=== PATIENT | female | born 1940 | race Caucasian/White ===

== ENCOUNTER 2016-11-27 16:58 | Inpatient (IN) | payer MEDICARE, OTHER ==
[~2016-11-27] VITALS: Ht 167.6 cm; Wt 73.3 kg
[~2016-11-27 16:58] MED LIST: ALBUTHFA INH; ASC500 PO; ASPI-653 PO; CHOL400T30 PO; CITA20TA PO; DABI150C2 PO; DILT120C17 PO; FURO-3 PO; GABA300C6 PO; GLU500 PO; LOP50 PO; MET10 PO; METO25T PO; OMEP20CA11 PO; PYRI100T6 PO; SIMV40TA5 PO; SPIR25TA17 PO; TIOT18CA INH; VITE PO
[2016-11-27 17:02] VITALS: BP 114/71; PULSE 80; RESP 18; O2SAT 97
[2016-11-27 17:39] LABS: EOSINOPHILS % (AUTO) 0.9 % (0-5); MONOCYTES % (AUTO) 10.1 % (4-12); Mean Corpuscular Hemoglobin 33.2 pg (27.0-35.0); Mean Corpuscular Volume 96.3 fL (81-100); NEUTROPHILS % (AUTO) 46.7 % (40-74); Platelet Count 199 bil/L (150-400)
[2016-11-27 18:18] LABS: TROPONIN T < 0.010 ug/L (0.0-0.011)
--- NOTE | 2016-11-27 18:44 | DRSVH ---
PROCEDURE: X-RAY CHEST ONE VIEW, PORTABLE ([id number]) INDICATIONS: 76 year-old female with shortness of breath and chest pressure for several days. TECHNIQUE: One view of the chest was acquired. COMPARISON: [facility], , CHEST 1VW, 09/16/2012, 0:12. FINDINGS: Surgical changes and devices: None. Lungs and pleura: No pleural effusions or pneumothorax. Lungs are clear. Mediastinum: Mediastinal contours appear normal. Mild cardiomegaly is unchanged. There is aortic at herosclerosis. Bones and chest wall: No suspicious bony lesions. Overlying soft tissues appear unremarkable. IMPRESSION: Mild cardiomegaly, without acute cardiopulmonary disease. Dictated by: Christiano Carbajal M.D. on 11/27/2016 at 18:42 Approved by: Christiano Carbajal M.D. on 11/27/2016 at 18:43
[2016-11-27] MEDS ORDERED: Furosemide 10 mg/mL 10 mL Inj IVPUSH ONE (18:55)
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
[2016-11-27 19:10] LABS: D-Dimer < 0.50 mg/L FEU (<0.50); INR 1.25 ratio
[2016-11-27 19:39] VITALS: BP 127/60; PULSE 71; RESP 11; O2SAT 95
[2016-11-27] MEDS ORDERED: GABA600T2 PO (20:11)
[2016-11-27] MEDS ORDERED: CHOL10008 PO (20:19)
[2016-11-27] MEDS ORDERED: METH5TAB3 PO ×2 (20:19→23:56)
[2016-11-27] MEDS ORDERED: DILT180C53 PO (20:19)
[2016-11-27] MEDS ORDERED: WARF5TAB7 PO (20:19)
[2016-11-27 20:49] LABS: APPEARANCE,URINE CLEAR (CLEAR,HAZY); COLOR,URINE YELLOW (YELLOW); OCCULT BLOOD,URINE NEGATIVE (NEGATIVE); UROBILINOGEN,URINE NORMAL (NORMAL)
[2016-11-27] MEDS ORDERED: Ondansetron 2 mg/mL 2 mL Inj IVPUSH PRN (21:25)
[2016-11-27] MEDS ORDERED: Senna-Docusate 8.6-50 mg Tablet PO PRN (21:25)
[2016-11-27] MEDS ORDERED: Polyethylene Glycol (PEG) 17 Gm Powder PO PRN (21:25)
[2016-11-27] MEDS ORDERED: Alum-Mag Hydrox-Simeth 30 mL Suspension PO PRN (21:25)
[2016-11-27 22:26] VITALS: BP 122/73; PULSE 73; RESP 17; O2SAT 95
[2016-11-27] MEDS ORDERED: ASPI-973 PO (23:54)
[2016-11-27] MEDS ORDERED: METF500T4 PO (23:54)
[2016-11-27] MEDS ORDERED: OMEP20CA11 PO (23:54)
[2016-11-27] MEDS ORDERED: LIP40 PO (23:56)
[2016-11-27] MEDS ORDERED: MTH10T PO (23:57)
[2016-11-27] MEDS ORDERED: ASCO-294 PO (23:58)
[2016-11-28] VITALS (8 sets, daily range): BP systolic 106–133; BP diastolic 61–88; PULSE 83–125; RESP 14–22; O2SAT 94–97
[2016-11-28] MEDS ORDERED: VITA-251 PO
[2016-11-28] MEDS ORDERED: ALBU18HF INH (00:05)
[2016-11-28] MEDS ORDERED: FURO40TA4 PO (00:05)
[2016-11-28] MEDS ORDERED: DILT180C53 PO (00:05)
[2016-11-28] MEDS ORDERED: TIOT18CA3 IH (00:05)
[2016-11-28] MEDS ORDERED: PYR50 PO (00:05)
[2016-11-28] MEDS ORDERED: spiriva (00:05)
[2016-11-28] MEDS ORDERED: CITA20TA11 PO (00:06)
[2016-11-28] MEDS ORDERED: Albuterol 2.5 mg/3 mL Inhalation Solution NEB PRN (00:39)
[2016-11-28] MEDS: Sodium Chloride LOK Flush 10 mL Syringe IVFLUSH SCH ×3 (01:15→19:59)
--- NOTE | 2016-11-28 02:55 | NUR ---
[place] [facility] [place] Patient arrived to room 3014 at 2230. alert and orientedx4 able to make needs known. denies pain/discomfort. Vitals stable. no shortness of breath. medication rec completed with patient own home med list. patient request night medications. paged. admission assessment completed through patient interview. tele in place. IV SL. patient up independently in room. steady gait observed.
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
[2016-11-28 06:32] LABS: INR 1.26 ratio
[2016-11-28 07:49] LABS: Magnesium 2.4 mg/dL (1.6-2.6)
[2016-11-28] MEDS ORDERED: Diltiazem CD 120 mg ER24 Capsule PO SCH (08:30)
[2016-11-28] MEDS: Pantoprazole 20 mg ER24 Tablet PO SCH ×2 (10:13→19:59)
[2016-11-28] MEDS: Tiotropium 18mcg/Cap 5 Capsule Inhaler Kit INHALATION SCH (10:17)
--- NOTE | 2016-11-28 11:24 | NUR ---
Case Management: MARCIE delivered and explained to pt. and spouse. Original placed in chart. Copy left at bedside. Sugey Sarabia RN
--- NOTE | 2016-11-28 11:55 | DRSVH ---
[facility] [address] [place] [address] Echocardiogram Report Name: STAN PENA Date : 11/28/2016 Height: 66 in Hospital Exam Location: [facility] Weight: 158 lb Gender: Female BSA: 1.8 m2 : 1940 Age: 76 yrs BP: 117/66 mmHg Reason For Study: Dyspnea Ordering Physician: HOSPITALIST [facility] Performed By: Abelino Nichols Referring Physician: ANITRA WOODS Interpretation Summary The left ventricle is mildly dilated. The ejection fraction is estimated to be 30-35%. There is moderate global hypokinesis of the left ventricle. Apical hypokinesis. Anteroseptal hypokinesis. There is moderate mitral regurgitation. There is moderate tricuspid regurgitation. The right ventricular systolic pressure is estimated at 34 mmHg assuming a right atrial pressure of 3 mm Hg. Compared to prior echo report on 11/11/14, changes are noted. Procedure: A two-dimensional transthoracic echocardiogram with color flow and Doppler was performed. The study quality was technically good. Comparison is made with the echocardiogram of 11/11/14. The patient was in atrial fibrillation with heart rates between 93-114 bpm during the exam. Left Ventricle: The left ventricle is mildly dilated. Left ventricular wall thickness is at the upper limits of normal. The ejection fraction is estimated to be 30-35%. There is moderate global hypokinesis of the left ventricle. Apical hypokinesis. Anteroseptal hypokinesis. Diastolic function could not be accurately assessed due to atrial fibrillation. Right Ventricle: The right ventricle is normal size. Right ventricular systolic function is mild to moderately reduced. Atria: The left atrium is severely dilated. The right atrium is mildly dilated. The interatrial septum is intact with no evidence for an atrial septal defect. Mitral Valve: The mitral valve leaflets appear mildly thickened, but open well. There is moderate mitral regurgitation. Aortic Valve: The aortic valve is trileaflet. The aortic valve opens well. There is trace aortic regurgitation. Tricuspid Valve: The tricuspid valve is normal. There is moderate tricuspid regurgitation. The right ventricular systolic pressure is estimated at 34 mmHg assuming a right atrial pressure of 3 mm Hg. Pulmonic Valve: The pulmonic valve leaflets are thin and pliable; valve motion is normal. There is a trace or physiologic amount of pulmonic regurgitation. Great Vessels: The aortic root is normal size. The ascending aorta is mildly enlarged. The pulmonary artery is normal size. The IVC is of normal diameter and collapses greater than 50% with a sniff. This suggests a low right atrial pressure of 3 mm Hg. Pericardium/ Pleura There is no pericardial effusion. There is no pleural effusion. MMode/2D Measurements & Calculations LVIDd: 5.4 cm RA long axis: 5.0 cm LVOT diam LVIDs: 4.4 cm LA A2 area: 26.1 cm FS: 19.2 % LA A4 area: 24.7 cm RA area: 18.5 cm AoV Opening EPSS: 1.5 cm LA length (vol): 5.7 cm RA vol: 58.4 ml IVSd: 0.98 cm LA vol: 95.7 ml RA : 32.3 ml/m2 Ao root diam LVPWd: 0.97 cm LA vol index: 52.9 ml/m asc Aorta Diam IVC diam: 2.1 cm EDV(MOD-sp2) LV garsia. diameter/BSA LV sys. diameter/BSA (cm/m^2): 3.0 (cm/m^2): 2.4 ESV(MOD-sp2) EF(MOD-sp2) Doppler Measurements & Calculations Ao V2 max: 82.1 cm/secMV E max jerod Med Peak E' Jerod TR max jerod Ao max P.7 mmHg : 97.0 cm/sec : 278.4 cm/sec Ao mean P.8 mmHg E/E' med: 19.2 TR max PG LVOT Max Jerod MR ERO: 0.34 cm2 Lat Peak E' Jerod : 31.0 mmHg : 60.6 cm/sec PA V2 max E/E' lat: 14.2 : 66.8 cm/sec DUANE(I,D): 2.0 cm E/e' average: 16.7 PA mean PG sev ratio: 0.72 : 1.0 mmHg Ao V2 mean LV V1 max PG MR flow rate PA V2 mean : 64.9 cm/sec : 48.8 cm/sec Ao V2 VTI: 15.9 cm LV V1 VTI : 173.2 cm3/sec : 11.4 cm MR PISA radius DUANE(V,D): 2.1 cm2 DUANE indexed to BSA (cm^2/m^2): 1.1 Electronically signed by: Mark Louis on Reading Physician:11/28/2016 11:54 AM
[2016-11-28] MEDS: Insulin LISPRO Low-Dose Scale SUBQ SCH ×3 (12:00→19:57)
[2016-11-28] MEDS ORDERED: MeTOProlol 1 mg/mL 5 mL Inj ONE (12:47)
--- NOTE | 2016-11-28 14:51 | PCM.PNMED ---
Subjective Date of Service November 28, 2016 Subjective says overall feeling better. Denies any CP or SOB at rest right now. Exam Vital Signs Vital Sign - Last Date Time Temp Pulse Resp B/P Pulse Ox O2 Delivery O2 Flow Rate FiO2 11/28/16 13:17 36.7 125 18 114/61 94 Room Air Intake and Output 11/27/16 11/27/16 11/28/16 Cumulative From/Thru 15:00 23:00 07:00 11/27/16 17:02 - 11/28/16 06:23 Intake Total 0 ml 0 ml Output Total 900 ml 1050 ml 1950 ml Balance -900 ml -1050 ml -1950 ml Intake Oral 0 ml 0 ml Output Urine Total 900 ml 1050 ml 1950 ml General: Alert, Cooperative, No Acute Distress Head: Normal Eyes: Scleral Anicteric Mouth: Mucous Membr Moist/[place] Neck: Supple Chest & Lungs: Chest Wall Normal, Clear to auscultation & percussion Cardiovascular: Regular Rate/Rhythm Pulses: NL carotid, radial, femoral, DP, PT Abdomen: Non-tender, Non-distended, Normoactive bowel tones, Soft Extremities: No cyanosis/clubbing/edma bilat Neurological: Grossly Neurologically Intact, Normal Speech IVs and Medications Medications Reviewed: Medications were reviewed in detail Lab and Diagnostics Result Diagram: 11/27/16 1725 11/28/16 0550 Cardiac Echo Impressions Echocardiogram 11/11/2014: Moderate to severe tricuspid regurgitation Moderate mitral regurgitation Left ventricle is borderline dilated. The left ventricle is borderline dilated. Left ventricular systolic function is normal without focal wall motion abnormalities. The ejection fraction is estimated to be 55-60%. Borderline right ventricular enlargement. The right ventricular systolic function is normal. The right ventricular systolic pressure is estimated at 52 mmHg assuming a right atrial pressure of 3 mm Hg. RVSP has improved. There is moderate to severe tricuspid regurgitation. There is moderate mitral regurgitation. There is no other significant valvular heart disease. The aortic root is normal size. Heart catheterization 09/24/2013: 1. Essentially no evidence of significant coronary artery disease angiographically. 2. Moderately elevated right-sided heart pressures with moderate to severely elevated left ventricular end-diastolic pressures. 3. Normal cardiac outputs, as well as cardiac index. Assessment & Plan 76-year-old lady here for increasing dyspnea on exertion, chest pressure and shortness of breath since 11/25/2016. # Acute systolic Heart failure, present on admission. Active. - History of pulmonary hypertension, prolonged QT, atrial fibrillation, COPD, moderate mitral regurg. - IV Lasix in the emergency department. - Continue home medications. - Troponins negative - Echo showing reduced EF to 30-35% with some wall motion abnormality - Followup pending stress test - Cardiology consult today # Subtherapeutic INR. Present admission. Active. - Warfarin dosing per pharmacy. # Chronic A. fib on chronic Coumadin, present on admission Active. - Continue warfarin per pharmacist. - Continue home Cartia XT 120 every 12 hours. # COPD, present on admission. Stable. - Continue home Ventolin and Spiriva as needed. # Rkm-eodjhaa-oldoicpyt diabetes, present admission. Active. - Holding home metformin. - Carb consistent diet. - Medium scale correctional and nutritional insulin. - HgA1C pending. # Chronic GERD, present on admission. Stable. - Continue home omeprazole. # History of thoracic compression fracture on chronic pain meds. - Continue home methadone. # Hypertension, not present on admission. Stable. - Continue home medications as appropriate. # History of traumatic injury with splenectomy. Dispo: 2-3 days Resuscitation Status: CPR: Attempt Resuscitation Killian Whyte November 28, 2016 14:51 SubQ heparin held for now. SCDs in place. Disposition: Patient has been admitted under inpatient status. Discharge is dependent upon cardiac findings. Discharge home when medically stable. Resuscitation Status: CPR: Attempt Resuscitation Killian Whyte November 28, 2016 14:51
--- NOTE | 2016-11-28 15:25 | PCM.PHAPRO ---
Progress Dyspnea on exertion, chest pressure. WARFARIN MANAGEMENT PER PHARMACY [facility] Date November 28-November INR 1.25 1.26 INR change 0.01 Warf Dose UNK 5 MG A/P -Subtherapeutic INR. Unclear of admin history prior to admit. -Will dose warfarin 5mg this evening. Gregg Dangelo, PharmD Gregg Dangelo November 28, 2016 15:25
--- NOTE | 2016-11-28 16:19 | NUR ---
Social Work: Initial Assessment Data: Pt is a 76 y/o female admitted for dyspnea, chest pain, CHF. Pt's PCP is Dr Orellana, pt's insurance is Medicare with [facility] Supp. Readmit score not listed. EMR reviewed. MINISTER HELPER met with pt and spouse at bedside, role explained. Pt states that she lives in an RV with her spouse with 4 stairs to enter. She uses no DME, drives, has no hx of HH or SNF, no LTC or VA benefits, and is not a caregiver. MINISTER HELPER received MD order for HH RN. MINISTER HELPER discussed this with pt, pt declining HH at this time. Assessment: Pt who is independent at baseline. Plan: Pt will d/c home via POV when medically stable. Pt declining HH. No further d/c planning needs anticipated a this time. MINISTER HELPER will continue to follow if needs arise. PAULIE Carter Addendum: 11/28/16 at 1624 by BUZZ BAL Amended: Links added.
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
[2016-11-28] MEDS ORDERED: Alum-Mag Hydrox-Simeth 30 mL Suspension PO PRN (16:40)
[2016-11-28] MEDS ORDERED: Ondansetron 2 mg/mL 2 mL Inj IVPUSH PRN (16:40)
[2016-11-28] MEDS ORDERED: Senna-Docusate 8.6-50 mg Tablet PO PRN (16:45)
[2016-11-28] MEDS ORDERED: Polyethylene Glycol (PEG) 17 Gm Powder PO PRN (16:45)
[2016-11-28] MEDS ORDERED: Amiodarone 150 mg/100 mL D5W 150 MG in IV Premix 1 EACH IV ONE (17:35)
--- NOTE | 2016-11-28 18:36 | NUR ---
Cardiology Pt. as of 1100 this morning had an increase in her HR to the 130s-140s and sustaining in the 100s per tele. I was notified right before Pt. was taken for her cardiac stress test at ~1330. I was told by report when Pt. returned back at ~1600 that IV metoprolol 2.5mg was administered due to increasing HR at stress test. Pt. since her return has been HR 120 at rest and increases to 130-140 with activity. was made aware of her HR and the IV metoprolol given at the cardiac stress test. Pt. denies CP and is asymptotic at this time. Will continue to monitor. Addendum: 11/28/16 at 1848 by REGINALD PATEL RN Pt. has expressed that she takes her warfarin (coumadin) in the morning and refused her evening dose of warfarin. Pt. also refused her celexa and lipitor this morning and expressed she takes those medications at night only.
[2016-11-29] VITALS (19 sets, daily range): BP systolic 82–142; BP diastolic 43–93; PULSE 76–117; RESP 17–26; O2SAT 92–97
[2016-11-29 06:17] LABS: Mean Corpuscular Volume 90.6 fL (81-100)
--- NOTE | 2016-11-29 06:20 | NUR ---
heart rate/amiodarone. Patients heart rate 90's-110's at rest. With activity heart rate increases to 130-140's. MD ordered IV amiodarone. unable to give medication on MPC. informed doctor Kaitlin. new orders to increase PO amiodarone to 400mg TID and hold IV amiodarone for now. patient was given HS dose. vitals stable. she continues to have increased heart rate with activity. will continue to monitor.
[2016-11-29 06:31] LABS: Magnesium 2.3 mg/dL (1.6-2.6)
[2016-11-29 06:59] LABS: INR 1.31 ratio
[2016-11-29] MEDS: Insulin LISPRO Low-Dose Scale SUBQ SCH ×4 (07:21→22:00)
[2016-11-29] MEDS: Tiotropium 18mcg/Cap 5 Capsule Inhaler Kit INHALATION SCH (08:18)
[2016-11-29] MEDS: Pantoprazole 20 mg ER24 Tablet PO SCH ×2 (08:18→22:33)
[2016-11-29] MEDS: Sodium Chloride LOK Flush 10 mL Syringe IVFLUSH SCH ×3 (08:23→23:43)
--- NOTE | 2016-11-29 08:53 | PCM.PNCARD ---
Subjective Date of service November 29, 2016 Chief Complaint Shortness of breath History of Present Illness 76yoF hx atrial fibrillation on Warfarin, HFpEF, type 2 diabetes, COPD, and a history of heavy tobacco use who presented with 3 days of progressive severe dyspnea on exertion. She also reported mild-moderate nonradiating chest pressure that occurred at rest and resolved spontaneously, palpitations, presyncope, and orthopnea. She reports chronic orthopnea over 2 years which requires her to sleep on a wedge at night, but reports orthopnea even with the wedge over the last 3 days, and had to sleep in her armchair. She was admitted to [facility] on 11/27/16 for atrial fibrillation and CHF exacerbation. On admission, echocardiogram noted new decreased systolic function with EF 30-35%, moderate global LV hypokinesis, apical and anteroseptal hypokinesis, moderate MR, and moderate TR. She had a nuclear pharmacological stress test on 11/28/16, and was noted to have ST depression in inferior and lateral leads with PVCs, and began to have a rapid ventricular response with HR in 130s - 150s. She was given metoprolol 2.5 mg IV and her HR decreased into the 120s. She was noted to be dyspneic with an episode of presyncope during the test. Subjective: Overnight, she received amiodarone. Her HR has been between 90s - 110s at rest, but continue to increase to 130s-140s with activity. She reports improved shortness of breath with exertion this morning and states she has been able to walk around her room and to the bathroom without any dypsnea. She denies orthopnea, paroxysmal nocturnal dyspnea, palpitations, chest discomfort, edema, dizziness, or syncope. PROBLEM LIST: #Atrial fibrillation with rapid ventricular rate #Systolic CHF (new systolic dysfunction per echo on 11/28/16) #COPD #Type 2 diabetes mellitus #History of tobacco use Exam Vital Signs Vital Sign - Last Date Time Temp Pulse Resp B/P Pulse Ox O2 Delivery O2 Flow Rate FiO2 11/29/16 07:47 95 20 97 Room Air 11/29/16 06:40 36.7 102/68 Intake and Output 11/28/16 11/28/16 11/29/16 Cumulative From/Thru 15:00 23:00 07:00 11/27/16 17:02 - 11/28/16 19:21 Intake Total 872 ml 872 ml Output Total 650 ml 2600 ml Balance 222 ml -1728 ml Intake Oral 872 ml 872 ml Output Urine Total 650 ml 2600 ml # Bowel Movements 1 1 Additional Information: General appearance: No apparent distress, well-nourished, pleasant, cooperative. HEET: Normocephalic, atraumatic, no scleral icterus, mucous membranes moist Neck: Supple, no JVD, no carotid bruit Cardiovascular: Irregularly irregular, normal S1 and normal S2, no murmurs/ rubs /gallops, PMI nondisplaced, no peripheral edema Respiratory: Good aeration, CTAB Abdomen: Soft, nontender, nondistended, + bowel sounds Neuro: Alert, no facial droop, tongue midline. Psych: Appropriate affect Skin: No rashes on face, neck, and lower extremities Lab and Diagnostics Result Diagram: 11/29/16 0550 11/29/16 0550 Assessment & Plan Assessment 76yoF hx atrial fibrillation on Warfarin, HFpEF, type 2 diabetes, COPD, and a history of heavy tobacco use who presented with 3 days of progressive severe dyspnea on exertion. Admitted for atrial fibrillation and congestive heart failure. #Atrial fibrillation with rapid ventricular rate: Patient admitted with AF and controlled HR and now having poor rate control after receiving lexiscan 2016 and then later after stopping her diltiazem (contraindicated in HF). Her heart rate currently averages around 100 at rest, but can increase to 130s - 140s with any activity. Goal HR <100 as she is symptomatic. Her blood pressure is borderline low, so will choose amiodarone IV over metoprolol. CHADSVASC score is 5, suggesting continued benefit from therapeutic anticoagulation. Plan : - Continue warfarin. Patient will consider switching to Eliquis if she can afford it - Continue amiodarone 400 mg BID - Start metoprolol XL 25mg bid - Continue to monitor on telemetry #Systolic CHF: Echo on 11/28/16 showed new systolic dysfunction (EF 30-35%) compared to prior echo on 11/11/14 which showed normal LVEF.Etiology unclear but it could be ischemic based on wall motion abnormalities and ST changes with partially done lexican 11/28/2016. No signs of volume overload on physical exam. Pro-BNP 1684. CXR showed cardiomegaly without pulmonary edema. NYHA class III. Plan: - Metoprolol XL as above - Will start PEDRO-I/ARB prior to discharge - Will do coronary angiography for ischemia evaluation. Informed consent obtained after discussing risks vs benefits. #HLD: well controlled. Plan: - Continue aspirin 81 mg daily - Continue atorvastatin 40 mg qhs # COPD: former smoker. - Congratulated her on smoking cessation - Management per primary team # Diabetes: defer to primary team Problems: Pain Evaluation: Adequate Pain Control Resuscitation Status: CPR: Attempt Resuscitation Attending Statement I saw, examined, and evaluated the patient with Dr. Christopher Armijo on 2016 and agree with the note as above along with my edits Christopher Armijo November 29, 2016 08:52 Maggy Santamaria MD November 29, 2016 11:44
--- NOTE | 2016-11-29 10:50 | NUR ---
frustration pt is upset and frustrated with the care she has received. pt was unhappy that this RN had to put her on an NPO diet for a possible heart cath. She requests a face to face meeting with the doc, to clarify what is happening and what she wants to happen. Dr. Desai notified in person and agrees to speak with manufacturing development engineer and then update the patient.
[2016-11-29] MEDS: MeTOProlol XL 25 mg ER24 Tablet PO SCH ×2 (11:09→22:34)
--- NOTE | 2016-11-29 12:37 | DRSVH ---
PROCEDURE PERFORMED: Pharmacologic vasodilator stress only myocardial perfusion imaging with gating to assess ejection fraction and regional wall motion. RADIOPHARMACEUTICALS: Stress: 23.1 mCi Tc-99 Tetrofosmin INDICATIONS: The patient is a 76-year-old female admitted with dyspnea and chest discomfort with a h istory of atrial fibrillation. COMPARISON: [facility], [place], MYOCARD PERF SPECT MULT, MIBI, 01/26/2013, 12:16. PHARMACOLOGIC STRESS: The patient presented to the CV in atrial fibrillation at 135 bpm, complainin g of intrascapular back pain with her ECG showing some diffuse nonspecific ST segment abnormalities. She was given 0.4 mg of Lexiscan with an associated increase in her heart rate and development of a cough and wheezing with lightheadedness despite normal blood pressures. O2 saturations remained grea ter than 97%. There was no significant change in her baseline ST segment abnormalities and no other arrhythmias were identified accept for an occasional PVC versus aberrant conduction. She was given 1 00 mg of aminophylline and 2.5 mg of IV metoprolol with improvement in her symptoms. FINDINGS: 1. Raw Data: There is fair myocardial tracer uptake. The patient refused both prone imaging and re sting images and, therefore, only post-stress supine images are available. 2. Quantitative Gated SPECT: Post-stress ejection fraction is calculated at 41% with global hypokin esis with an end diastolic volume of 38 mL. There is no obvious focal wall motion abnormality. 3. Myocardial Perfusion Imaging: Post-stress supine images show a fairly normal myocardial perfusio n pattern without any significant perfusion defects. Again, no prone or resting images are available because of the patient's refusal. CONCLUSIONS: 1. Probable normal myocardial perfusion study for ischemia. 2. No significant perfusion defects to suggest myocardial ischemia or previous myocardial infarction . 3. Moderately reduced left ventricular systolic function in a global fashion, perhaps related to her rapid atrial fibrillation. 4. No angina or change in the baseline ST segment abnormalities with vasodilator stress, although wi th a significant acceleration of her resting rapid atrial fibrillation with associated dyspnea and li ghtheadedness, despite adequate blood pressures and oxygen saturations. 5. Compared to the previous myocardial perfusion study of 01/26/2013, a similar perfusion pattern is identified, but her previous ejection fraction was 75%, suggesting a significant decline in systol ic function, perhaps due to her rapid atrial fibrillation but clinical correlation is needed. Dictated by: Óscar Siddiqui M.D. on 11/29/2016 at 11:30 Transcribed by: RUPESH on 11/29/2016 at 15:37 Approved by: Óscar Siddiqui M.D. on 11/29/2016 at 17:44
--- NOTE | 2016-11-29 12:37 | NUR ---
supervisor labor gang pt is scheduled to go to have a cath/cardiac procedure at approximately 1500 today. pt has been NPO since eating a small breakfast this am (peaches, [place] muffin, and a few bites of egg).
--- NOTE | 2016-11-29 13:50 | PCM.PNMED ---
Subjective Date of Service November 29, 2016 Subjective Denies any CP or SOB at rest right now. Exam Vital Signs Vital Sign - Last Date Time Temp Pulse Resp B/P Pulse Ox O2 Delivery O2 Flow Rate FiO2 11/29/16 13:36 36.9 76 20 117/69 97 Room Air Intake and Output 11/28/16 11/28/16 11/29/16 Cumulative From/Thru 15:00 23:00 07:00 11/27/16 17:02 - 11/28/16 19:21 Intake Total 872 ml 872 ml Output Total 650 ml 2600 ml Balance 222 ml -1728 ml Intake Oral 872 ml 872 ml Output Urine Total 650 ml 2600 ml # Bowel Movements 1 1 Exam General: Alert, Cooperative, No Acute Distress Head: Normal Eyes: Scleral Anicteric Mouth: Mucous Membr Moist/[place] Neck: Supple Chest & Lungs: Chest Wall Normal, Clear to auscultation bilat Cardiovascular: Regular Rate/Rhythm Pulses: NL carotid, radial, femoral, DP, PT Abdomen: Non-tender, Non-distended, Normoactive bowel tones, Soft Extremities: No cyanosis/clubbing/edema bilat Neurological: Grossly Neurologically Intact, Normal Speech IVs and Medications Medications Reviewed: Medications were reviewed in detail Lab and Diagnostics Result Diagram: 11/29/16 0550 11/29/16 0550 Cardiac Echo Impressions Echocardiogram 11/11/2014: Moderate to severe tricuspid regurgitation Moderate mitral regurgitation Left ventricle is borderline dilated. The left ventricle is borderline dilated. Left ventricular systolic function is normal without focal wall motion abnormalities. The ejection fraction is estimated to be 55-60%. Borderline right ventricular enlargement. The right ventricular systolic function is normal. The right ventricular systolic pressure is estimated at 52 mmHg assuming a right atrial pressure of 3 mm Hg. RVSP has improved. There is moderate to severe tricuspid regurgitation. There is moderate mitral regurgitation. There is no other significant valvular heart disease. The aortic root is normal size. Heart catheterization 09/24/2013: 1. Essentially no evidence of significant coronary artery disease angiographically. 2. Moderately elevated right-sided heart pressures with moderate to severely elevated left ventricular end-diastolic pressures. 3. Normal cardiac outputs, as well as cardiac index. Assessment & Plan 76-year-old lady here for increasing dyspnea on exertion, chest pressure and shortness of breath since 11/25/2016. # Acute systolic Heart failure, present on admission. Active. - History of pulmonary hypertension, prolonged QT, atrial fibrillation, COPD, moderate mitral regurg. - IV Lasix in the emergency department. - Continue home medications. - Troponins negative - Echo showing reduced EF to 30-35% with some wall motion abnormality - Appreciate cardiology consult. Will followup with recs - Plan for cardiac cath later today # Subtherapeutic INR. Present admission. Active. - Warfarin dosing per pharmacy. - Followup daily INR # Chronic A. fib on chronic Coumadin, present on admission. Acute RVR not present on admission now with better control - Continue warfarin per pharmacist. - Continue Toprol XL. Further adjustment per cardiology recs # Acute kidney injury. Present on admission. ongoing - Likely due to pre-renal state from cardiomyopathy and now with additional diuresis - Avoid nephrotoxic meds - Followup # COPD, present on admission. Stable. - Continue home Ventolin and Spiriva as needed. # Dxu-gkjvxcg-koplwdedt diabetes, present admission. Active. - Holding home metformin. - Carb consistent diet. - Medium scale correctional and nutritional insulin. - HgA1C 6 # Chronic GERD, present on admission. Stable. - Continue home omeprazole. # History of thoracic compression fracture on chronic pain meds. - Continue home methadone. # Hypertension, not present on admission. Stable. - Continue home medications as appropriate. # History of traumatic injury with splenectomy. Dispo: 1-2 days Resuscitation Status: CPR: Attempt Resuscitation Killian Whyte November 29, 2016 13:50
[2016-11-29] MEDS ORDERED: Nitroglycerin 50,000 mcg/250 mL D5W Premix IV ONE (14:39)
[2016-11-29] MEDS ORDERED: Heparin 1,000 Unit/mL 10 mL Inj ONE (14:39)
[2016-11-29] MEDS ORDERED: Heparin 1,000 Units/500 mL NS Premix IV ONE (14:39)
[2016-11-29] MEDS ORDERED: Heparin 10,000 Unit/1,000 mL NS Premix IV ONE (14:40)
[2016-11-29] MEDS ORDERED: 0.9% Sodium Chloride 1,000 ML ONE (14:40)
[2016-11-29] MEDS ORDERED: fentaNYL-PF 50 mCg/mL 2 mL Inj ONE (15:13)
--- NOTE | 2016-11-29 16:07 | PCM.CVCATH ---
Cardiac Cath Report Date of Service November 29, 2016 Primary Indication New systolic heart failure Procedure coronary angiography, left heart cath Vascular Access Right radial artery using 5 Fr slender sheath, closure with TR band. Diagnostic Catheters Left main: [place] 4.0, 5 Fr RCA: [place] 4.0, 5 Fr Procedure Details Coronary angiography details: The patient was brought to the cardiac catheterization lab in the fasting state. Patient was laid supine on the cardiac catheterization table and the right forearm was prepped and draped in the usual sterile fashion. One percent Xylocaine was infiltrated over the right radial artery. Vascular access was then achieved under ultrasound guidance. Guide wire was used to advance the catheter through the sheath and up into aortic sinuses. After coronary angiography was completed, guide wire was advanced through the catheter ahead of the tip of the catheter and the guide wire along with the catheter were pulled together out of the sheath. Medications/Fluoro Time Medications administered: 1.Fentanyl: 50 mcg IV 2. Midazolam: 1 mg IV 3. Heparin: 5000 units IV 4. Nitroglycerin: 150 mcg IA Fluoroscopy Time: see cath tech report Contrast (Isovue): 30 mls Blood loss: 5 mls Findings 1) Coronary angiography: Right dominance a. Left main is angiographically normal b. LAD is normal caliber with minimal luminal irregularities. c. LCx is normal caliber vessel with mild luminal irregularities. There is a large caliber second obtuse marginal artery that is angiographically normal. d. RCA is normal caliber dominant vessel with mild luminal irregularities. 2) Left Heart catheterization: a. LVEDP is low normal at 5 mmHg. b. No significant transaortic gradient on catheter pull-back. Complications There were no periprocedural complications identified. Summary 1) No significant angiographic coronary artery disease 2) Low normal left sided filling pressures Recommendations Maximize medical management of heart failure Maggy Santamaria MD November 29, 2016 16:07
--- NOTE | 2016-11-29 16:16 | PCM.PHAPRO ---
Progress Date of Service: November 29, 2016 Warfarin dosing Date November 28-November 29-November INR 1.25 1.26 1.31 INR change 0.01 0.05 Warf Dose UNK 5 MG 2.5 MG A/ INR is still subtherapeutic at 1.31 today P/ In light of the recent Amiodarone start -- decreasing dose as this interaction should show up on around the third day of amiodarone use. Giving 2.5 mg today and will reassess with AM labs tomorrow. Óscar Cross November 29, 2016 16:16
--- NOTE | 2016-11-29 19:25 | NUR ---
JADYN PT WAS RECEIVED FROM DANCING TEACHER AT 1600. RIGHT WRIST WITH TR BAND IN PLACE HAS REMAINED STABLE, NO BLEEDING OR HEMATOMA PRESENT. RADIAL PULSE 2+. PT WAS GIVEN TYLENOL FOR 7/10 RIGHT SHOULDER PAIN AND STATED RELIEF. SHE HAD HER MEAL AND TOLERATED WELL. IV FLUIDS WERE INFUSED PER ORDERS DR DELACRUZ AND THEN PT WAS SALINE LOCKED. REPORT CALLED TO YEMI Wells RN AND PT AND HER NURSING CARE WERE TRANSFERRED BACK TO ROOM 3014 AT 1920. ADDITIONAL UPDATE GIVEN TO SUREKHA Ruffin RN. PT AND DAUGHTER WERE GIVEN POST TR BAND WRITTEN INSTRUCTIONS.
[2016-11-30] VITALS (9 sets, daily range): BP systolic 76–117; BP diastolic 50–77; PULSE 70–92; RESP 16–20; O2SAT 92–95
[2016-11-30 06:41] LABS: INR 1.18 ratio
--- NOTE | 2016-11-30 07:06 | PCM.PHAPRO ---
Progress Warfarin Management by Pharmacy: -Indication: afib -Home Dose: warfarin 2.5mg Mo and 5mg all other days -Drug Interactions: amiodarone, citalopram -Disease Interactions: CHF -Concurrent Anticoagulation: none -Coagulation Trends: -November 28-November 29-November 30-November 1.25 1.26 1.31 1.18 0.01 0.05 -0.13 UNK 5 MG 2.5 MG 4MG -Plan: will give warfarin 4mg this evening and follow Rosio Pack [facility] November 30, 2016 07:06
[2016-11-30] MEDS: Insulin LISPRO Low-Dose Scale SUBQ SCH ×4 (08:00→22:00)
--- NOTE | 2016-11-30 09:30 | PCM.PNCARD ---
Subjective Date of service November 30, 2016 Chief Complaint Shortness of breath History of Present Illness 76yoF hx atrial fibrillation on Warfarin, HFpEF, type 2 diabetes, COPD, and a history of heavy tobacco use who presented with 3 days of progressive severe dyspnea on exertion. She also reported mild-moderate nonradiating chest pressure that occurred at rest and resolved spontaneously, palpitations, presyncope, and orthopnea. She reports chronic orthopnea over 2 years which requires her to sleep on a wedge at night, but reports orthopnea even with the wedge over the last 3 days, and had to sleep in her armchair. She was admitted to [facility] on 11/27/16 for atrial fibrillation and CHF exacerbation. On admission, echocardiogram noted new decreased systolic function with EF 30-35%, moderate global LV hypokinesis, apical and anteroseptal hypokinesis, moderate MR, and moderate TR. She had a nuclear pharmacological stress test on 11/28/16, and was noted to have ST depression in inferior and lateral leads with PVCs, and began to have a rapid ventricular response with HR in 130s - 150s. She was given metoprolol 2.5 mg IV and her HR decreased into the 120s. She was noted to be dyspneic with an episode of presyncope during the test. Subjective: She was asymptomatic overnight, with no complaints. Telemetry showed HR 70s - 90s. Today, she reports improved shortness of breath with exertion, nearly at baseline, and is able to walk around her room and to the bathroom without any dypsnea. She denies orthopnea, paroxysmal nocturnal dyspnea, palpitations, chest discomfort, edema, dizziness, or syncope. PROBLEM LIST: #Atrial fibrillation with rapid ventricular rate #Systolic CHF (new systolic dysfunction per echo on 11/28/16) #COPD #Type 2 diabetes mellitus #History of tobacco use Exam Vital Signs Vital Sign - Last Date Time Temp Pulse Resp B/P Pulse Ox O2 Delivery O2 Flow Rate FiO2 11/30/16 06:15 85 11/30/16 05:09 36.6 20 101/67 94 Room Air 90/63 76/50 Intake and Output 11/29/16 11/29/16 11/30/16 Cumulative From/Thru 15:00 23:00 07:00 11/27/16 17:02 - 11/30/16 05:17 Intake Total 200 ml 1140 ml 2212 ml Output Total 100 ml 400 ml 3100 ml Balance 100 ml 740 ml -888 ml Intake Oral 200 ml 740 ml 1812 ml IV Total 400 ml 400 ml Output Urine Total 100 ml 400 ml 3100 ml # Bowel Movements 0 1 Additional Information: General appearance: No apparent distress, well-nourished, pleasant, cooperative. HEET: Normocephalic, atraumatic, no scleral icterus, mucous membranes moist Neck: Supple, no JVD, no carotid bruit Cardiovascular: Irregularly irregular, normal S1 and normal S2, no murmurs/ rubs /gallops, PMI nondisplaced, no peripheral edema Respiratory: Good aeration, CTAB Abdomen: Soft, nontender, nondistended, + bowel sounds Neuro: Alert, no facial droop, tongue midline. Psych: Appropriate affect Skin: No rashes on face, neck, and lower extremities Lab and Diagnostics Result Diagram: 11/29/16 0550 11/30/16 0600 12-lead ECG Telemetry: Afib 70s-90s, with occasional increase to 100s with exertion Additional Diagnostics: 1) Coronary angiography: Right dominance a. Left main is angiographically normal b. LAD is normal caliber with minimal luminal irregularities. c. LCx is normal caliber vessel with mild luminal irregularities. There is a large caliber second obtuse marginal artery that is angiographically normal. d. RCA is normal caliber dominant vessel with mild luminal irregularities. 2) Left Heart catheterization: a. LVEDP is low normal at 5 mmHg. b. No significant transaortic gradient on catheter pull-back. Assessment & Plan Assessment 76yoF hx atrial fibrillation on anticoagulation, HFpEF, type 2 diabetes, COPD, and a history of heavy tobacco use who presented with 3 days of progressive severe dyspnea on exertion. Admitted for atrial fibrillation and congestive heart failure. #Atrial fibrillation with rapid ventricular rate: Patient admitted with AF and controlled HR and now having poor rate control after receiving lexiscan 2016 and then later after stopping her diltiazem (contraindicated in HF). Her heart rate now remains between 70s-90s, with occasional increase to 100s with exertion. Goal HR <100 as she is symptomatic. CHADSVASC score is 5, suggesting continued benefit from therapeutic anticoagulation. Plan: - Switch from warfarin to Eliquis 5 mg BID as patient interested in novel anticoagulants - Continue amiodarone 400 mg BID for 3-7 days, and then decrease to 400 mg daily - Continue metoprolol XL 25mg BID and consider uptitration tomorrow - Continue to monitor on telemetry #Systolic CHF: Echo on 11/28/16 showed new systolic dysfunction (EF 30-35%) compared to prior echo on 11/11/14 which showed normal LVEF. Etiology unclear, unlikely to be ischemic based on normal coronary arteries on cath 11/29/16. May be arrhythmia or tachycardia-induced cardiomyopathy. No signs of volume overload on physical exam. Pro-BNP 1684. CXR showed cardiomegaly without pulmonary edema. NYHA class III. Plan: - Metoprolol XL as above - Recommend starting low dose PEDRO-I/ARB before discharge #[place]: Cr increased from 1.13 to 1.38 today, likely secondary to volume depletion. She is also orthostatic. Will give NS 500 ml and stop diuretics. - Stop Lasix 80 mg daily PO - NS 500 ml over 1 hr #HLD: well controlled. Plan: - Continue aspirin 81 mg daily - Continue atorvastatin 40 mg qhs # COPD: former smoker. - Congratulated her on smoking cessation - Management per primary team # Diabetes: defer to primary team Dispo: Anticipate discharge tomorrow if patient euvolemic Problems: Pain Evaluation: Adequate Pain Control Resuscitation Status: CPR: Attempt Resuscitation Attending Statement I saw, examined, and evaluated the patient with Dr. Christopher Armijo on 2016 and agree with the note as above along with my edits. Christopher Armijo November 30, 2016 09:30 Maggy Santamaria MD November 30, 2016 11:19
[2016-11-30] MEDS: Sodium Chloride LOK Flush 10 mL Syringe IVFLUSH SCH ×2 (09:33→16:30)
[2016-11-30] MEDS: Pantoprazole 20 mg ER24 Tablet PO SCH ×2 (09:34→20:20)
[2016-11-30] MEDS: MeTOProlol XL 25 mg ER24 Tablet PO SCH ×2 (09:50→20:30)
[2016-11-30] MEDS: Tiotropium 18mcg/Cap 5 Capsule Inhaler Kit INHALATION SCH (09:52)
[2016-11-30] MEDS ORDERED: 0.9% Sodium Chloride 500 ML IV ONE (10:40)
--- NOTE | 2016-11-30 13:21 | PCM.PNMED ---
Subjective Date of Service November 30, 2016 Subjective Denies any CP or SOB at rest right now. no other new issues/complaints Exam Vital Signs Vital Sign - Last Date Time Temp Pulse Resp B/P Pulse Ox O2 Delivery O2 Flow Rate FiO2 11/30/16 10:51 90 11/30/16 09:39 36.4 18 115/68 95 Room Air Intake and Output 11/29/16 11/29/16 11/30/16 Cumulative From/Thru 15:00 23:00 07:00 11/27/16 17:02 - 11/30/16 05:17 Intake Total 200 ml 1140 ml 2212 ml Output Total 100 ml 400 ml 3100 ml Balance 100 ml 740 ml -888 ml Intake Oral 200 ml 740 ml 1812 ml IV Total 400 ml 400 ml Output Urine Total 100 ml 400 ml 3100 ml # Bowel Movements 0 1 Exam General: Alert, Cooperative, No Acute Distress Head: Normal Eyes: Scleral Anicteric Mouth: Mucous Membr Moist/[place] Neck: Supple Chest & Lungs: Chest Wall Normal, Clear to auscultation bilat Cardiovascular: Regular Rate/Rhythm Pulses: NL carotid, radial, femoral, DP, PT Abdomen: Non-tender, Non-distended, Normoactive bowel tones, Soft Extremities: No cyanosis/clubbing/edema bilat Neurological: Grossly Neurologically Intact, Normal Speech IVs and Medications Medications Reviewed: Medications were reviewed in detail Lab and Diagnostics Result Diagram: 11/29/16 0550 11/30/16 0600 Cardiac Echo Impressions Echocardiogram 11/11/2014: Moderate to severe tricuspid regurgitation Moderate mitral regurgitation Left ventricle is borderline dilated. The left ventricle is borderline dilated. Left ventricular systolic function is normal without focal wall motion abnormalities. The ejection fraction is estimated to be 55-60%. Borderline right ventricular enlargement. The right ventricular systolic function is normal. The right ventricular systolic pressure is estimated at 52 mmHg assuming a right atrial pressure of 3 mm Hg. RVSP has improved. There is moderate to severe tricuspid regurgitation. There is moderate mitral regurgitation. There is no other significant valvular heart disease. The aortic root is normal size. Heart catheterization 09/24/2013: 1. Essentially no evidence of significant coronary artery disease angiographically. 2. Moderately elevated right-sided heart pressures with moderate to severely elevated left ventricular end-diastolic pressures. 3. Normal cardiac outputs, as well as cardiac index. Assessment & Plan 76-year-old lady here for increasing dyspnea on exertion, chest pressure and shortness of breath since 11/25/2016. # Acute non-ischemic systolic Heart failure, present on admission. Active. - History of pulmonary hypertension, prolonged QT, atrial fibrillation, COPD, moderate mitral regurg. - IV Lasix in the emergency department and PO Lasix after admission - Continue home medications. - Troponins negative - Echo showing reduced EF to 30-35% with some wall motion abnormality - Post cath on 11/29/16: "no significant angiographic coronary artery disease" - Appreciate cardiology consult. Will followup with recs # Subtherapeutic INR. Present admission. Active. - Stop Warfarin and start Eliquis on 11/30 per cardiology recs # Chronic A. fib present on admission. Acute RVR not present on admission now with better control - Switch warfarin to Eliquis as noted above - Continue amiodarone 400 mg BID for 3-7 days, and then decrease to 400 mg daily - Continue metoprolol XL 25mg BID # Acute kidney injury. Present on admission. ongoing and worsening - Likely due to pre-renal state from cardiomyopathy and now with additional diuresis - Stop Lasix today - IV fluid per cardiology - Followup repeat labs in am # COPD, present on admission. Stable. - Continue home Ventolin and Spiriva as needed. # Eiy-chkewhz-uncxjgeug diabetes, present admission. Active. - Holding home metformin. - Carb consistent diet. - Medium scale correctional and nutritional insulin. - HgA1C 6 # Chronic GERD, present on admission. Stable. - Continue home omeprazole. # History of thoracic compression fracture on chronic pain meds. - Continue home methadone. # Hypertension, not present on admission. Stable. - Continue current meds # History of traumatic injury with splenectomy. Dispo: likely home tomorrow pending improved renal function and volume status Resuscitation Status: CPR: Attempt Resuscitation Killian Whyte November 30, 2016 13:21
--- NOTE | 2016-11-30 15:52 | NUR ---
Cath site, Fluid bolus and activity Post heart cath in R wrist, dressing c/d/i, neuros WNL. Tele monitoring in place at this time. Kidney labs elevated, new orders for NS bolus. Encouraging oral intake. Ind activity in room and halls. Making needs known appropriately using call light.
[2016-12-01] VITALS (7 sets, daily range): BP systolic 104–113; BP diastolic 61–73; PULSE 78–89; RESP 16; O2SAT 96–98
[2016-12-01] MEDS: Sodium Chloride LOK Flush 10 mL Syringe IVFLUSH SCH ×2 (00:25→08:58)
[2016-12-01] MEDS: Insulin LISPRO Low-Dose Scale SUBQ SCH ×2 (08:00→12:00)
[2016-12-01] MEDS: Tiotropium 18mcg/Cap 5 Capsule Inhaler Kit INHALATION SCH (09:02)
[2016-12-01] MEDS: Pantoprazole 20 mg ER24 Tablet PO SCH (09:04)
[2016-12-01] MEDS ORDERED: 0.9% Sodium Chloride 500 ML IV ONE (09:20)
[2016-12-01] MEDS: MeTOProlol XL 25 mg ER24 Tablet PO SCH (09:50)
--- NOTE | 2016-12-01 09:51 | PCM.PNCARD ---
Subjective Date of service December 01, 2016 Chief Complaint Shortness of breath History of Present Illness 76yoF hx atrial fibrillation on Warfarin, HFpEF, type 2 diabetes, COPD, and a history of heavy tobacco use who presented with 3 days of progressive severe dyspnea on exertion. She also reported mild-moderate nonradiating chest pressure that occurred at rest and resolved spontaneously, palpitations, presyncope, and orthopnea. She reports chronic orthopnea over 2 years which requires her to sleep on a wedge at night, but reports orthopnea even with the wedge over the last 3 days, and had to sleep in her armchair. She was admitted to [facility] on 11/27/16 for atrial fibrillation and CHF exacerbation. On admission, echocardiogram noted new decreased systolic function with EF 30-35%, moderate global LV hypokinesis, apical and anteroseptal hypokinesis, moderate MR, and moderate TR. She had a nuclear pharmacological stress test on 11/28/16, and was noted to have ST depression in inferior and lateral leads with PVCs, and began to have a rapid ventricular response with HR in 130s - 150s. She was given metoprolol 2.5 mg IV and her HR decreased into the 120s. She was noted to be dyspneic with an episode of presyncope during the test. Subjective: She was asymptomatic overnight, with no complaints. HR remains between 70s - 90s. Today, she denies shortness of breath on exertion and is able to walk around the halls without any dyspnea. She denies orthopnea, paroxysmal nocturnal dyspnea, palpitations, chest discomfort, edema, dizziness, or syncope. She has no complaints at this time. PROBLEM LIST: #Atrial fibrillation with rapid ventricular rate #Systolic CHF (new systolic dysfunction per echo on 11/28/16) #COPD #Type 2 diabetes mellitus #History of tobacco use Exam Vital Signs Vital Sign - Last Date Time Temp Pulse Resp B/P Pulse Ox O2 Delivery O2 Flow Rate FiO2 12/01/16 06:39 36.6 82 16 104/67 97 Room Air Intake and Output 11/30/16 11/30/16 12/01/16 Cumulative From/Thru 15:00 23:00 07:00 11/27/16 17:02 - 12/01/16 06:57 Intake Total 400 ml 1186 ml 693 ml 4491 ml Output Total 1150 ml 500 ml 900 ml 5650 ml Balance -750 ml 686 ml -207 ml -1159 ml Intake Oral 400 ml 1186 ml 693 ml 4091 ml IV Total 400 ml Output Urine Total 1150 ml 500 ml 900 ml 5650 ml # Bowel Movements 0 0 1 Additional Information: General appearance: No apparent distress, well-nourished, pleasant, cooperative. HEET: Normocephalic, atraumatic, no scleral icterus, mucous membranes moist Neck: Supple, no JVD, no carotid bruit Cardiovascular: Irregularly irregular, normal S1 and normal S2, no murmurs/ rubs /gallops, PMI nondisplaced, no peripheral edema Respiratory: Good aeration, CTAB Abdomen: Soft, nontender, nondistended, + bowel sounds Neuro: Alert, no facial droop, tongue midline. Psych: Appropriate affect Skin: No rashes on face, neck, and lower extremities Lab and Diagnostics Result Diagram: 11/29/16 0550 12/01/16 0525 Assessment & Plan Assessment 76yoF hx atrial fibrillation on Warfarin, HFpEF, type 2 diabetes, COPD, and a history of heavy tobacco use who presented with 3 days of progressive severe dyspnea on exertion. Admitted for atrial fibrillation and congestive heart failure. #Atrial fibrillation with rapid ventricular rate: Patient admitted with AF and controlled HR and now having poor rate control after receiving lexiscan 2016 and then later after stopping her diltiazem (contraindicated in HF). Her heart rate now remains between 70s-90s, with occasional increase to 100s with exertion. Goal HR <100 as she is symptomatic. CHADSVASC score is 5, suggesting continued benefit from therapeutic anticoagulation. Plan: - Continue Eliquis 5 mg BID - Continue amiodarone 400 mg BID for 3-7 days total (Day 2), and then decrease to 400 mg daily - Continue metoprolol XL 25mg BID and uptitrate as outpatient - Continue to monitor on telemetry #Systolic CHF: Echo on 11/28/16 showed new systolic dysfunction (EF 30-35%) compared to prior echo on 11/11/14 which showed normal LVEF. Etiology unclear, unlikely to be ischemic based on normal coronary arteries on cath 11/29/16. May be arrhythmia or tachycardia-induced cardiomyopathy. No signs of volume overload on physical exam. Pro-BNP 1684. CXR showed cardiomegaly without pulmonary edema. NYHA class III. Plan: - Metoprolol XL as above - Recommend starting low dose PEDRO-I/ARB outpatient. #SHUBHAM: Cr increased from 1.38 to 1.43 today, likely secondary to volume depletion. Will continue to replace fluids. She is stable and otherwise appropriate for discharge. - Stopped Lasix - Reordered NS 500 ml over 1 hr - Recheck BMP at 2 PM and d/c patient is BUN/Cr stable - Will hold off on starting PEDRO/ARB until BUN/Cr is baseline #HLD: well controlled. Plan: - Continue aspirin 81 mg daily - Continue atorvastatin 40 mg qhs # COPD: former smoker. - Congratulated her on smoking cessation - Management per primary team # Diabetes: defer to primary team Dispo: Pt is euvolemic and asymptomatic. Recommend discharge this afternoon if 2 PM BUN/Cr are stabilizing, with repeat outpatient BMP on Friday and close Cardiology follow-up in 2 weeks. Will discuss decreasing amiodarone, uptitrating metoprolol XL, and starting lisinopril as outpatient Problems: Pain Evaluation: Adequate Pain Control Resuscitation Status: CPR: Attempt Resuscitation Attending Statement I saw, examined, and evaluated the patient with Dr. Christopher Armijo on 2016 and agree with the note as above along with my edits. Christopher Armijo December 01, 2016 09:51 Maggy Santamaria MD December 01, 2016 11:04 #SHUBHAM: Cr increased from 1.13 to 1.38 today, likely secondary to volume depletion. She is also orthostatic. Will give NS 500 ml and stop diuretics. - Stop Lasix 80 mg daily PO - NS 500 ml over 1 hr #HLD: well controlled. Plan: - Continue aspirin 81 mg daily - Continue atorvastatin 40 mg qhs # COPD: former smoker. - Congratulated her on smoking cessation - Management per primary team # Diabetes: defer to primary team Problems: Pain Evaluation: Adequate Pain Control Resuscitation Status: CPR: Attempt Resuscitation Christopher Armijo December 01, 2016 09:51
[2016-12-01] MEDS ORDERED: AMIO200T PO (10:41)
[2016-12-01] MEDS ORDERED: METO25TA99 PO (10:41)
[2016-12-01] MEDS ORDERED: APIX5TAB PO (10:41)
--- NOTE | 2016-12-01 10:47 | PCM.DIMED ---
Discharge Instructions Date of Service December 01, 2016 Dates of Hospitalization November 27, 2016 at 22:04 Discharge Diagnosis Discharge Diagnosis # Acute non-ischemic systolic Heart failure, present on admission. Clinically improved - Post cardiac cath on 11/29/16: "no significant angiographic coronary artery disease" # Subtherapeutic INR. Present admission. Resolved - Stopped Warfarin and started Eliquis on 11/30/16 # Chronic atrial fibrillation, present on admission. Acute rapid ventricular response (RVR) not present on admission now rate controlled. # Acute kidney injury. Present on admission. Ongoing - Likely due to pre-renal state and dehydration # COPD, present on admission. Stable. # Ogy-zrsvzfl-rnrdfmjex diabetes, present admission. - HgA1C 6 # Chronic GERD, present on admission. Stable. # History of thoracic compression fracture, on chronic pain medications. Stable. # Chronic hypertension. Stable. # History of traumatic injury with splenectomy. Diet Discharge Diet: Low fat, Low Sodium, Heart Healthy, Diabetic Activity Discharge Activity: No restrictions Call your provider Call your provider for: Fever or Chills, Shortness of breath, Bleeding, Chest pain, Vomitting, Excessive diarrhea Patient Instructions Patient Instructions Seek immediate medical attention if any new or worsening signs or symptoms occur. Follow-up plan 1. Followup with primary care provider (Dr. Orellana) in 5-7 days 2. Followup with cardiology (Dr. Santamaria) in 2 weeks. [facility] [address] [address] [place] [address] Follow-up Provider: Pablo Orellana MD Follow-up with PCP in: 1 week Provider: Maggy Santamaria MD Follow-up in: 2 weeks Killian Whyte December 01, 2016 10:47
--- NOTE | 2016-12-01 11:06 | CONS ---
[address] [address] CONSULTATION REPORT PATIENT: STAN PENA I : 1940 MR#: [id number] ADMIT: 11/27/2016 JOB ID: [id number] DATE OF SERVICE: 12/01/2016 HISTORY: The patient is a very pleasant 76-year-old, white female, who was admitted to [facility] earlier last week for acute congestive heart failure and unstable angina. She has since developed some minor acute kidney injury and renal consultation is being sought for further evaluation of her acute kidney injury. She has a history of cardiomyopathy and congestive heart failure. She normally sees <__IM_1: BLANK 00:42__> and had been fairly stable until about a week or two prior to admission. She states that she has been having some increasing dyspnea on exertion, fatigue, and general malaise. She also has a history of COPD and initially felt this was part of her COPD. One to two days prior to admission she began to experience some substernal chest pressure which was nonradiating. This occurred at rest and worsened the night prior to admission. At that time this was associated with significant resting dyspnea, orthopnea, and she experienced several episodes of paroxysmal nocturnal dyspnea. She denies any recent lower extremity edema. She was in the emergency department and subsequently was aggressively diuresed. She then underwent a heart catheterization 2 days ago. Reviewing her vital signs since admission. She has had a number of episodes of hypotension for the past 3 days with systolic blood pressures as low as the mid 70s. Her lab at time of admission showed a BUN and creatinine of 29 and 1.08. Since that time it has progressively risen and this morning is 38 and 1.43 respectively. She states that she feels thirsty. She states that a number of years ago had some type of kidney problem, but is quite vague and was unable to characterize this. She denies any history of any hematuria, proteinuria, recurrent urinary tract infections, renal lithiasis, or frequent use of nonsteroidal anti-inflammatories. She states that she does have some straining with urination, but denies any dysuria, frequency, urgency, or hesitancy. There is no history of any rheumatoid arthritis, lupus, or hepatitis. There is about a 2-3 year history of lmp-bdanoah-chliqcfbf diabetes mellitus, which is controlled with metformin. She states her glucose has been under good control and does semi-follow a diabetic diet. Her last eye exam was less than a month ago and there is no history of any diabetic retinopathy. She does have symptoms of peripheral neuropathy in both hands and both feet. There is also a 10 year history of hypertension which is normally under good control. She also has a history of congestive heart failure, but denies a history of any coronary artery disease, prior myocardial infarction, or history of rheumatic heart disease. Otherwise she denies any severe headache, visual disturbances, cough, change in her wheezing, however, she has had some increased dyspnea on exertion as detailed above. Her appetite has been fair, and she denies any nausea, vomiting, diarrhea, and does have chronic constipation. There is no history of any fever, chills, rashes, or worsening of arthralgias. There is no new change in her weight. PAST MEDICAL HISTORY: Significant for diabetes, hypertension, congestive heart failure, COPD, and hyperlipidemia as detailed above. Otherwise she denies a history of any stroke, seizure, thyroid illness, or malignancy. PAST SURGICAL HISTORY: Significant for a hysterectomy, splenectomy following abdominal trauma, appendectomy, and tonsillectomy. ALLERGIES: 1. MACROLIDES. 2. PENICILLINS. 3. BEE STINGS. SOCIAL HISTORY: She has an extensive smoking history and states she has quit smoking about 10 years ago. She does not drink alcohol and normally is able to take care of her activities of daily living and personal needs without significant problems until recently. FAMILY HISTORY: Noncontributory. REVIEW OF SYSTEMS: Detailed above. MEDICATIONS: At time of my evaluation, include: 1. Amiodarone. 2. Eliquis. 3. Aspirin. 4. Lipitor. 5. Celexa. 6. Gabapentin. 7. Methadone. 8. Metoprolol. 9. Nitroglycerin. 10. Along with Protonix. PHYSICAL EXAMINATION: Revealed a somewhat pale appearing 76-year-old, white female, who was alert and oriented x3 in no distress at time of my evaluation. Her blood pressure this morning was 100/68 with a pulse rate of 70. HEENT examination is remarkable for pale sclerae. Cornea, conjunctiva, pupils, and extraocular muscles were unremarkable. Mucous membranes were somewhat dry. Neck is supple without adenopathy, thyromegaly, or jugular venous distention. Examination of her chest shows some increased AP diameter with an increased kyphotic curve. There is dullness to percussion bilaterally and diminished breath sounds were noted. Heart was irregularly irregular. Abdomen is soft, without any tenderness rebound, guarding, masses, or hepatosplenomegaly. Extremities did not show any evidence of any clubbing, cyanosis, or edema. Skin turgor is diminished. There is no evidence of any rashes. IMPRESSION: Acute kidney injury secondary to dehydration/hypotension and contrast induced acute kidney injury. RECOMMENDATION: I would like to get a renal ultrasound, and I would like to start her on IV normal saline at 125 an hour for 1 L, and then cut her back to 60 mL/minute. We need to continue to follow her lab. Once again, I would like to thank you for allowing me to participate in the care of this most pleasant and interesting patient. I will be following her closely with you.
--- NOTE | 2016-12-01 15:31 | PCM.DC.MED ---
Discharge Summary Date of Service December 01, 2016 Dates of Hospitalization Date of Hospital Admission November 27, 2016 at 22:04 Date of Discharge: December 01, 2016 Providers: Admitting Physician: Rodrick Moreno MD Primary Care Physician: Pablo Orellana MD Attending Physician: Rodrick Moreno MD Diagnosis at Time of Discharge Diagnosis at Time of Discharge # Acute non-ischemic systolic Heart failure, present on admission. Clinically improved - Post cardiac cath on 11/29/16: "no significant angiographic coronary artery disease" # Subtherapeutic INR. Present admission. Resolved - Stopped Warfarin and started Eliquis on 11/30/16 # Chronic atrial fibrillation, present on admission. Acute rapid ventricular response (RVR) not present on admission now rate controlled. # Acute kidney injury. Present on admission. Ongoing - Likely due to pre-renal state and dehydration # COPD, present on admission. Stable. # Tsx-gkzayhn-zwvngpoky diabetes, present admission. - HgA1C 6 # Chronic GERD, present on admission. Stable. # History of thoracic compression fracture, on chronic pain medications. Stable. # Chronic hypertension. Stable. # History of traumatic injury with splenectomy. Consultations 1. Cardiology 2. Nephrology Procedures XRay, CTs & MRIs Date of Service: 11/27/16 1705 PROCEDURE: X-RAY CHEST ONE VIEW, PORTABLE ([id number]) IMPRESSION: Mild cardiomegaly, without acute cardiopulmonary disease. Dictated by: Christiano Carabjal M.D. on 11/27/2016 at 18:42 Approved by: Christiano Carbajal M.D. on 11/27/2016 at 18:43 Cardiac Echo Impression Date of Service: 11/28/16 4960 Echocardiogram Report Interpretation Summary The left ventricle is mildly dilated. The ejection fraction is estimated to be 30-35%. There is moderate global hypokinesis of the left ventricle. Apical hypokinesis. Anteroseptal hypokinesis. There is moderate mitral regurgitation. There is moderate tricuspid regurgitation. The right ventricular systolic pressure is estimated at 34 mmHg assuming a right atrial pressure of 3 mm Hg. Compared to prior echo report on 11/11/14, changes are noted. Electronically signed by: Mark Louis on Reading Physician:11/28/2016 11:54 AM Invasive Procedures Cardiac Cath Report Date of Service November 29, 2016 Procedure coronary angiography, left heart cath Summary 1) No significant angiographic coronary artery disease 2) Low normal left sided filling pressures Recommendations Maximize medical management of heart failure Maggy Santamaria MD <Electronically signed by Maggy Santamaria MD> 11/29/16 1607 Other Diagnostics Date of Service: 11/28/16 1029 PROCEDURE PERFORMED: Pharmacologic vasodilator stress only myocardial perfusion imaging with gating to assess ejection fraction and regional wall motion. CONCLUSIONS: 1. Probable normal myocardial perfusion study for ischemia. 2. No significant perfusion defects to suggest myocardial ischemia or previous myocardial infarction. 3. Moderately reduced left ventricular systolic function in a global fashion, perhaps related to her rapid atrial fibrillation. 4. No angina or change in the baseline ST segment abnormalities with vasodilator stress, although with a significant acceleration of her resting rapid atrial fibrillation with associated dyspnea and lightheadedness, despite adequate blood pressures and oxygen saturations. 5. Compared to the previous myocardial perfusion study of 01/26/2013, a similar perfusion pattern is identified, but her previous ejection fraction was 75%, suggesting a significant decline in systolic function, perhaps due to her rapid atrial fibrillation but clinical correlation is needed. Dictated by: Óscar Siddiqui M.D. on 11/29/2016 at 11:30 Transcribed by: RUPESH on 11/29/2016 at 15:37 Approved by: Óscar Siddiqui M.D. on 11/29/2016 at 17:44 Brief History As noted in H&P by Dr. Scales: 76yoF hx atrial fibrillation on Warfarin, HFpEF, type 2 diabetes, COPD, and a history of heavy tobacco use who presented with 3 days of progressive severe dyspnea on exertion. She also reported mild-moderate nonradiating chest pressure that occurred at rest and resolved spontaneously, palpitations, presyncope, and orthopnea. She reports chronic orthopnea over 2 years which requires her to sleep on a wedge at night, but reports orthopnea even with the wedge over the last 3 days, and had to sleep in her armchair. She was admitted to [facility] on 11/27/16 for atrial fibrillation and CHF exacerbation. On admission, echocardiogram noted new decreased systolic function with EF 30-35%, moderate global LV hypokinesis, apical and anteroseptal hypokinesis, moderate MR, and moderate TR. She had a nuclear pharmacological stress test on 11/28/16, and was noted to have ST depression in inferior and lateral leads with PVCs, and began to have a rapid ventricular response with HR in 130s - 150s. She was given metoprolol 2.5 mg IV and her HR decreased into the 120s. She was noted to be dyspneic with an episode of presyncope during the test. Hospital Course # Acute non-ischemic systolic Heart failure, present on admission. Improved - IV Lasix in the emergency department and PO Lasix after admission - Troponin negative - Echo showing reduced EF to 30-35% with some wall motion abnormality - Post cath on 11/29/16: "no significant angiographic coronary artery disease" - Appreciate cardiology consult. - Continue with medical management. - Cardiology's impression is that patient is currently intervascularly depleted and does not recommend any diuretics or Lisinopril at discharge. Dr. Santamaria graciously agrees to follow the patient closely as outpatient and initiate additional medications as may be appropriate. # Subtherapeutic INR. Present admission. - Stopped Warfarin and started Eliquis on 11/30 per cardiology recs # Chronic A. fib present on admission. Acute RVR not present on admission now with better control - Switched warfarin to Eliquis as noted above - Started Amiodarone 400 mg BID for 3-7 days, and then decrease to 400 mg daily - Started on Metoprolol XL 25mg BID during this hospital # Acute kidney injury. Present on admission. ongoing - Likely due to pre-renal state from cardiomyopathy and additional diuresis - IV fluids given per cardiology and nephrology recommendations - Repeat labs on day of discharge show improving Cr. - Dr. Santamaria graciously agrees to followup on patient's repeat labs this coming Friday and recommends discharging patient home today # COPD, present on admission. Stable. - Continue home Ventolin and Spiriva as needed. # Olh-ldjzbtd-lusfuweda diabetes, present admission. Active. - HgA1C 6 # Chronic GERD, present on admission. Stable. - Continue home omeprazole. # History of thoracic compression fracture on chronic pain meds. - Continue home methadone. # Hypertension, not present on admission. Stable. - Continue current meds # History of traumatic injury with splenectomy. By day of discharge patient denies any SOB or chest pain Exam Vital Signs (Last) Date Time Temp Pulse Resp B/P Pulse Ox O2 Delivery O2 Flow Rate FiO2 12/01/16 15:08 80 16 96 Room Air 12/01/16 13:53 36.5 106/68 Exam General: Alert, Cooperative, No Acute Distress Head: Normal Eyes: Scleral Anicteric Mouth: Mucous Membr Moist/[place] Neck: Supple Chest & Lungs: Chest Wall Normal, Clear to auscultation bilat Cardiovascular: Regular Rate/Rhythm Pulses: NL carotid, radial, femoral, DP, PT Abdomen: Non-tender, Non-distended, Normoactive bowel tones, Soft Extremities: No cyanosis/clubbing/edema bilat Neurological: Grossly Neurologically Intact, Normal Speech Test 11/27/16 17:25 11/27/16 18:58 11/27/16 20:34 11/27/16 21:53 Neutrophils (%) (Auto) 46.7% (40-74) Lymphocytes (%) (Auto) 41.2% (14-46) Monocytes (%) (Auto) 10.1% (4-12) Eosinophils (%) (Auto) 0.9% (0-5) Basophils (%) (Auto) 1.0% (0-3) Erythrocyte Sedimentation Rate 10mm/hr (0-40) Total Bilirubin 0.4mg/dL (0.0-1.2) Aspartate Amino Transf (AST/SGOT) 27U/L (0-50) Alanine Aminotransferase (ALT/SGPT) 25U/L (0-32) Alkaline Phosphatase 88U/L (25-165) Total Protein 7.7g/dL (6.4-8.4) Albumin 4.0g/dL (3.4-5.0) Hold Richardson Top Tube Received (Received) D-Dimer < 0.50mg/L FEU (<0.50) Urine Color Yellow (YELLOW) Urine Appearance Clear (CLEAR,HAZY) Urine pH 7.0 (5.0-8.0) Urine Specific [place] 1.010 (1.003-1.035) Urine Protein Negativemg/dL (NEG,TRACE) Urine Glucose (UA) Negativemg/dL (NEGATIVE) Urine Ketones Negativemg/dL (NEGATIVE) Urine Occult Blood Negative (NEGATIVE) Urine Nitrite Negative (NEGATIVE) Urine Bilirubin Negative (NEGATIVE) Urine Urobilinogen Normalmg/dL (NORMAL) Urine Leukocyte Esterase Negative (NEGATIVE) Urine RBC 0-2/hpf (0-2) Urine WBC 0-5/hpf (0-5) Urine Epithelial Cells Few/hpf (NONE-MOD) Urine Crystals None seen (NONE SEEN) Urine Bacteria Few/hpf (NONE-FEW) Urine Hyaline Casts None/lpf (NONE) Urine Granular Casts None seen (NONE SEEN) Urine Waxy Casts None seen (NONE SEEN) Urine Red Blood Cell Casts None seen (NONE SEEN) Urine White Blood Cell Casts None seen (NONE SEEN) Urine Mucus None seen (None Seen) Urine Trichomonas None seen (NONE SEEN) Urine Yeast None (NONE SEEN) Urinalysis Comment None Urine Culture Reflexed Not indicated Uric Acid 7.6mg/dL (2.6-7.2) Vitamin B12 Level 530pg/mL (211-946) Folate 18.5ng/mL (>3.0) Test 11/27/16 23:07 11/28/16 05:50 11/29/16 05:50 11/30/16 06:00 Troponin T 0.010ug/L (0.0-0.011) Hemoglobin A1c 6.0% (4.8-5.6) Pro-B-Type Natriuretic Peptide 1684pg/mL (0-738) Triglycerides Level 65mg/dL (0-149) Cholesterol Level 195mg/dL (100-199) LDL Cholesterol, Calculated 69.000mg/dL (0-99) VLDL Cholesterol 13.000mg/dL HDL Cholesterol 113mg/dL (>39) Cholesterol/HDL Ratio 1.73 (0.0-4.4) White Blood Count 7.8th/mm3 (3.8-10.1) Red Blood Count 4.06mil/mm3 (3.90-5.20) Hemoglobin 13.4g/dL (12.0-15.6) Hematocrit 36.8% (35.0-46.0) Mean Corpuscular Volume 90.6fL (81-100) Mean Corpuscular Hemoglobin 33.0pg (27.0-35.0) Mean Corpuscular Hemoglobin Concent 36.4% (32.0-37.0) Red Cell Distribution Width 14.2% (12.3-15.4) Platelet Count 225bil/L (150-400) Magnesium Level 2.3mg/dL (1.6-2.6) Prothrombin Time 12.7sec (8.1-12.5) Prothromb Time International Ratio 1.18ratio Test 12/01/16 14:08 Sodium Level 135mEq/L (134-144) Potassium Level 4.5mEq/L (3.5-5.2) Chloride Level 100mEq/L (97-108) Carbon Dioxide Level 21mmol/L (18-29) Blood Urea Nitrogen 35mg/dL (8-27) Creatinine 1.28mg/dL (0.57-1.00) Estimat Glomerular Filtration Rate 58mL/min (>59) Glucose Level 131mg/dL (60-99) Calcium Level 8.3mg/dL (8.5-10.1) Discharge Medications Discharge Medications Amiodarone (Amiodarone) 200 Mg Tablet 400 MG PO DIRECTED TAKE ONE TABLET TWICE DAILY FOR ONE DAY AND THEN, TAKE ONE TABLET DAILY UNTIL FOLLOWUP WITH CARDIOLOGY. Prescribed by: FRANCISCA MUÑIZ MD Apixaban (Eliquis) 5 Mg Tablet 5 MG PO BID Prescribed by: FRANCISCA MUÑIZ MD Ascorbate Calcium (Vitamin C) 500 Mg Tablet 500 MG PO DAILY (Reported) Aspirin (Aspirin) 81 Mg Tablet 81 MG PO DAILY (Reported) Atorvastatin (Lipitor) 40 Mg Tablet 40 MG PO DAILY (Reported) Cholecalciferol (Vitamin D3) (Vitamin D3) 1,000 Unit Tab.chew 1,000 UNIT PO DAILY (Reported) Citalopram (Citalopram) 20 Mg Tablet 20 MG PO DAILY (Reported) Gabapentin (Gabapentin) 600 Mg Tablet 600 MG PO BID (Reported) Metformin (Metformin) 500 Mg Tablet 500 MG PO DAILY (Reported) Methadone (Methadone) 5 Mg Tablet 5 MG PO MORNING (Reported) Methadone (Methadone) 10 Mg Tab 10 MG PO HS (Reported) Metoprolol Succinate ER (Metoprolol Succinate ER) 25 Mg Tab.er.24h 25 MG PO Q12 Prescribed by: FRANCISCA MUÑIZ MD Omeprazole (Omeprazole) 20 Mg Capsule.dr 20 MG PO BID (Reported) Tiotropium [place] (Spiriva) 18 Mcg Cap.w.dev 18 MCG IH DAILY (Reported) Vitamin E (Dl,Tocopheryl Acet) (Vitamin E) 1,000 Unit Capsule 1,000 UNIT PO DAILY (Reported) As needed Albuterol Sulfate (Ventolin HFA Inhaler) 200 Puff/18 Gm Inhaler 2 PUFF INH Q4 PRN PRN For Wheezing (Reported) Miscellaneous Medications Pyridoxine (Vitamin B-6) 50 Mg Tablet 200 MG PO (Reported) Followup Plan Disposition: Home Follow-up plan 1. Followup with primary care provider (Dr. Orellana) in 5-7 days 2. Followup with cardiology (Dr. Santamaria) in 2 weeks. [facility] [address] [address] Discharge Diet: Low fat, Low Sodium, Heart Healthy, Diabetic Discharge Activity: No restrictions Patient Instructions Seek immediate medical attention if any new or worsening signs or symptoms occur. Patient expresses clear verbal understanding of the mentioned assessment, plans , and followup and agrees. Follow-up Provider: Pablo Orellana MD Follow-up with PCP in: 1 week Provider: Maggy Santamaria MD Follow-up in: 2 weeks Time spent 40 min copies to: Maggy Santamaria MD; Pablo Orellana MD, Masoud December 01, 2016 15:30
--- NOTE | 2016-12-01 15:38 | NUR ---
Social Work: Discharge Data: Pt is on day 4 of hospitalization. EMR reviewed. D/C orders are in. Pt continues to decline HH. No d/c planning needs at this time. EGG GATHERER will continue ot follow if needs arise. Assessment: Pt who is independent at baseline. Plan: Pt will d/c home via POV today. Pt continues to decline HH. No d/c planning needs at this time. EGG GATHERER will continue ot follow if needs arise. PAULIE Carter
[2016-12-01] MEDS ORDERED: TIOT18CA3 IH (16:03)
--- NOTE | 2016-12-01 16:25 | NUR ---
Discharge Pt left floor with belongings via w/c at 1615 with student nurse and spouse. Scripts, discharge packet and lab followup information discussed and provided. Pt understands and is comfortable with the plan of care.
== END 2016-12-01 16:21 | disposition home or self-care (01) | DRG 287 ==
LOC: SED 16:58 → MPC 22:04 → OBSVTOIN 22:04 → SOU 11-28 12:34 → MPC 11-28 12:45
PROVIDERS: ADMIT Hospitalist; ATTEND Hospitalist
PROC: 4A023N7 Measurement of Cardiac Sampling and Pressure, Left Heart, Percutaneous Approach (ICD-10-PCS; principal; 2016-11-29)
PROC: B2111ZZ Fluoroscopy of Multiple Coronary Arteries using Low Osmolar Contrast (ICD-10-PCS; 2016-11-29)
DX: I50.21 Acute systolic (congestive) heart failure (principal); N17.9 Acute kidney failure, unspecified; I42.9 Cardiomyopathy, unspecified; M48.54XA Collapsed vertebra, not elsewhere classified, thoracic region, initial encounter for fracture; I48.2 Chronic atrial fibrillation; Z79.01 Long term (current) use of anticoagulants; M51.9 Unspecified thoracic, thoracolumbar and lumbosacral intervertebral disc disorder; I34.0 Nonrheumatic mitral (valve) insufficiency; K21.9 Gastro-esophageal reflux disease without esophagitis; I10 Essential (primary) hypertension; J45.909 Unspecified asthma, uncomplicated; E11.42 Type 2 diabetes mellitus with diabetic polyneuropathy; Z90.81 Acquired absence of spleen; Z87.891 Personal history of nicotine dependence; Z88.0 Allergy status to penicillin; Z79.84 Long term (current) use of oral hypoglycemic drugs; Z79.82 Long term (current) use of aspirin

== ENCOUNTER 2016-12-02 01:30 | Inpatient (IN) | payer MEDICARE, OTHER ==
[2016-12-02] VITALS (20 sets, daily range): BP systolic 88–146; BP diastolic 44–116; PULSE 73–157; RESP 16–32; O2SAT 88–98
[~2016-12-02] VITALS: Ht 167.6 cm; Wt 74.2 kg
[~2016-12-02 01:30] MED LIST changes: +ALBU18HF INH; +AMIO200T PO; +APIX5TAB PO; +ASCO-294 PO; +ASPI-973 PO; +CHOL10008 PO; +CITA20TA11 PO; +DILT180C53 PO; +FURO40TA4 PO; +GABA600T2 PO; +LIP40 PO; +METF500T4 PO; +METH5TAB3 PO; +METO25TA99 PO; +MTH10T PO; +PYR50 PO; +TIOT18CA3 IH; +VITA-251 PO; +WARF5TAB7 PO; +spiriva
--- NOTE | 2016-12-02 01:36 | ED.REPORT ---
HPI-Chest Pain 40 and Over Date of Service December 02, 2016 ED Provider: David Harp MD Patient is a 76 year year old female with a hx of Afib, CHF, and DM who presents to the ED complaining of chest pain onset 3.5 hours prior to arrival. Associated symptoms include nausea, diarrhea, and diaphoresis. She denies extremity pain, headache, or any other symptoms. Patient was just discharged from the hospital this morning after a stay for dyspnea upon exertion and chest pressure. Her medications were changed today. Nursing Notes Stated Complaint: CHEST PAIN Nursing Notes Reviewed: Yes Allergies: Coded Allergies: Penicillins (Verified Allergy, Severe, ANAPHYLAXIS, 09/16/12) azithromycin (Verified Allergy, Severe, ANAPHYLAXIS, 09/16/12) Macrolide Antibiotics (Verified Allergy, Unknown, 11/27/16) Uncoded Allergies: Honey Bee (Allergy, Mild, major swell up, 12/01/04) Scheduled Amiodarone (Amiodarone) 200 Mg Tablet 400 MG PO DIRECTED TAKE ONE TABLET TWICE DAILY FOR ONE DAY AND THEN, TAKE ONE TABLET DAILY UNTIL FOLLOWUP WITH CARDIOLOGY. Apixaban (Eliquis) 5 Mg Tablet 5 MG PO BID Ascorbate Calcium (Vitamin C) 500 Mg Tablet 500 MG PO DAILY Aspirin (Aspirin) 81 Mg Tablet 81 MG PO DAILY Atorvastatin (Lipitor) 40 Mg Tablet 40 MG PO DAILY Cholecalciferol (Vitamin D3) (Vitamin D3) 1,000 Unit Tab.chew 1,000 UNIT PO DAILY Citalopram (Citalopram) 20 Mg Tablet 20 MG PO DAILY Gabapentin (Gabapentin) 600 Mg Tablet 600 MG PO BID Metformin (Metformin) 500 Mg Tablet 500 MG PO DAILY Methadone (Methadone) 5 Mg Tablet 5 MG PO MORNING Methadone (Methadone) 10 Mg Tab 10 MG PO HS Metoprolol Succinate ER (Metoprolol Succinate ER) 25 Mg Tab.er.24h 25 MG PO Q12 Omeprazole (Omeprazole) 20 Mg Capsule.dr 20 MG PO BID Tiotropium [place] (Spiriva) 18 Mcg Cap.w.dev 18 MCG IH DAILY Vitamin E (Dl,Tocopheryl Acet) (Vitamin E) 1,000 Unit Capsule 1,000 UNIT PO DAILY Scheduled PRN Albuterol Sulfate (Ventolin HFA Inhaler) 200 Puff/18 Gm Inhaler 2 PUFF INH Q4 PRN PRN For Wheezing Miscellaneous Medications Pyridoxine (Vitamin B-6) 50 Mg Tablet 200 MG PO General Time Seen by MD: 01:35 Chief Complaint Chest pain Hx Obtained From: Patient, Spouse Arrived By: Wheelchair Sudden in Onset?: Yes Onset Occurred: 1 - 4 hours ago Symptom Duration: Since onset Recent Healthcare: Recent hospitalization Past Medical History Past Medical History Atrial fibrillation (on Warfarin). Oxc-fnjblog-vynepjkqu type 2 diabetes. COPD CHF Depression Asthma Previously reported chronic episodes of numbness and tingling in her fingertips of the hands and feet, which has been going on for years now. Chronic thoracic pain due to compression fracture in the past. 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 Family History Notable for father with heart disease. Smoking History Former Smoker Social History Other Social History: Good social support Ambulatory Status Independent Review of Systems Cardiovascular: Reports: Chest pain GI: Reports: Diarrhea, Nausea Musculoskeletal: Denies: Extremity pain Skin: Reports Diaphoresis Neurologic: Denies: Headache Complete sys rev & neg: except as marked. Physical Exam Initial Vital Signs Vital Signs (First) Date Time Temp Pulse Resp B/P Pulse Ox O2 Delivery O2 Flow Rate FiO2 12/02/16 01:37 115 32 146/116 88 Room Air 12/02/16 01:54 5 12/02/16 02:08 36.7 12/02/16 02:53 50 Initial VS: Vital signs abnormal Head / Eyes: Atraumatic, Normocephalic Skin: Warm Neurologic: Alert, Oriented, Nonfocal Psychiatric: Mood/affect normal, Behavior normal, Normal thought content General/Constitutional: Awake, Alert Appearance / Presentation: Positive: Cachectic Thin Wheezing / Retractions: Positive: Wheezing expiratory Rales / Rhonchi: Positive: Rales bilateral bases Cardiovascular: Peripheral circulation NL Heart Rate / Rhythm: Positive: Tachycardia Abdomen: Soft, Non-tender Lower Extremity / Pelvis / MS: Non-tender, Neurologic intact, Vascular intact, No edema Interpretation & Diagnostics Lab Results Interpretation Result Diagram: 12/02/16 0151 12/02/16 0151 Test 12/02/16 01:33 12/02/16 01:51 Hold Richardson Top Tube Received (Received) White Blood Count 10.5th/mm3 (3.8-10.1) Red Blood Count 4.25mil/mm3 (3.90-5.20) Hemoglobin 14.1g/dL (12.0-15.6) Hematocrit 40.7% (35.0-46.0) Mean Corpuscular Volume 95.8fL (81-100) Mean Corpuscular Hemoglobin 33.2pg (27.0-35.0) Mean Corpuscular Hemoglobin Concent 34.6% (32.0-37.0) Red Cell Distribution Width 14.2% (12.3-15.4) Platelet Count 217bil/L (150-400) Neutrophils (%) (Auto) 49.9% (40-74) Lymphocytes (%) (Auto) 41.1% (14-46) Monocytes (%) (Auto) 6.8% (4-12) Eosinophils (%) (Auto) 1.0% (0-5) Basophils (%) (Auto) 1.0% (0-3) Sodium Level 133mEq/L (134-144) Potassium Level 3.7mEq/L (3.5-5.2) Chloride Level 95mEq/L (97-108) Carbon Dioxide Level 20mmol/L (18-29) Blood Urea Nitrogen 36mg/dL (8-27) Creatinine 1.30mg/dL (0.57-1.00) Estimat Glomerular Filtration Rate 57mL/min (>59) Glucose Level 171mg/dL (60-99) Calcium Level 8.9mg/dL (8.5-10.1) Magnesium Level 2.2mg/dL (1.6-2.6) Total Bilirubin 0.3mg/dL (0.0-1.2) Aspartate Amino Transf (AST/SGOT) 101U/L (0-50) Alanine Aminotransferase (ALT/SGPT) 72U/L (0-32) Alkaline Phosphatase 102U/L (25-165) Troponin T 0.010ug/L (0.0-0.011) Pro-B-Type Natriuretic Peptide 2579pg/mL (0-738) Total Protein 8.0g/dL (6.4-8.4) Albumin 4.3g/dL (3.4-5.0) Lab Results Interpretation: Mildly elevated white blood count, mildly elevated nonfasting glucose, mildly elevated BUN/creatinine. Troponin is negative. BNP is mildly elevated. ECG Interpretation ECG Interpretation: Afib with RVR rate of 113 Prolonged QT Time: 01:44 Interpreted by: ED physician ABG Interpretation ABG Interpretation: pH 7.373 CO2 43 O2 72.3 cHCO3- 25.0 cBase -0.3 Exam Performed by: Allied health pract Indication: Respiratory distress ABG Findings: Normal blood gas X-Ray Chest Interpretation Chest Xray Interpretation: CHF exacerbation View: Portable, 1 view Interpretation / Wet Read by: Interpret - ED physician Re-Eval/Medical Decision Med Decision/Clinical Course 76-year-old female with CHF with an acute exacerbation after being discharged this morning. Her Lasix was discontinued and it appears that that may play a role in her exacerbation. Labs were unremarkable with a negative troponin and a mildly elevated BNP. Chest x-ray shows findings consistent with CHF exacerbation. She has some expiratory wheezing so was given a nebulizer treatment. She did not tolerate this well and terminated about assisted through. She appeared to worsen. She was given Lasix 40 mg IV. She was started on BiPAP which she wore for little over a half hour and felt much better and took it off. ABG was unremarkable. She will be readmitted to the hospitalist service for further evaluation and treatment. Time of Eval: 02:30 Re-Evaluation/Progress Note: Rechecked patient. She is dry heaving and still having trouble breathing. Will continue treatment including CPap. Discussed possibility of admission. Patient understands and agrees with plan. All questions addressed at this time. Consultation : Referral / Consult Name: MarvinLiliam Raymond JOE Consulted With: Hospitalist Call Returned at: 04:14 Preparing Box Tender: Will see patient, Agrees with eval, Agrees with plan, Accepts admit Note: Discussed patient's case. Accepts admit. Counseled Regarding: Diagnosis, Lab results, Need for admission Discharge & Departure Primary Impression: CHF exacerbation Congestive heart failure type: systolic Qualified Code: I50.23 - Acute on chronic systolic (congestive) heart failure Disposition: ADMITTED TO HOSPITAL Discharge Condition All VS Reviewed: Yes Condition: Improved Referrals: Pablo Orellana MD (PCP) Scribe Attestation Portions of this note were transcribed by Tarun Shaver. I, Dr. Harp personally performed the history, physical exam and medical decision-making; I reviewed and confirmed the accuracy of the information in the transcribed note. Signed by: Tarun Shaver 12/02/16, 0299 copies to: Pablo Orellana MD, Howard L MD December 02, 2016 01:36 TARUN SHAVER December 02, 2016 01:43
[2016-12-02] MEDS ORDERED: Albuterol-Ipratropium 3 mL Inhalation Solution ONE (01:42)
[2016-12-02] MEDS ORDERED: Albuterol 2.5 mg/3 mL Inhalation Solution NEB ONE ×2 (01:42→01:45)
[2016-12-02] MEDS ORDERED: Albuterol-Ipratropium 3 mL Inhalation Solution NEB ONE (01:45)
[2016-12-02 01:54] LABS: MONOCYTES % (AUTO) 6.8 % (4-12); Mean Corpuscular Hemoglobin 33.2 pg (27.0-35.0); Mean Corpuscular Volume 95.8 fL (81-100); NEUTROPHILS % (AUTO) 49.9 % (40-74); Platelet Count 217 bil/L (150-400)
[2016-12-02] MEDS ORDERED: Furosemide 10 mg/mL 4 mL Inj IVPUSH ONE (02:25)
[2016-12-02] MEDS ORDERED: Ondansetron 2 mg/mL 2 mL Inj IVPUSH PRN ×2 (02:25→04:55)
[2016-12-02 02:29] LABS: Magnesium 2.2 mg/dL (1.6-2.6); TROPONIN T 0.01 ug/L (0.0-0.011)
[2016-12-02] MEDS ORDERED: Diltiazem 5 mg/mL 5 mL Inj IVPUSH PRN (02:35)
--- NOTE | 2016-12-02 04:43 | ABG ---
DateTimeAnalyzed 04:37:00 -_ pH ____7.373 - 7.350 7.450 pCO2 ___43.0__ -mmHg 35.0 45.0 pO2 ___72.3__ -mmHg 69.0 116 HCO3- ___25.0__ -mmol/L 22.0 26.0 ABE ___-0.3__ -mmol/L tHb ___13.1__ -g/dL O2Hb ___94.1__ -% COHb ____1.4__ -% 1.5 MetHb ____0.0__ -% sO2 ___95.4__ -% FIO2 ___40.0__ -% Drawn By LT - Date/Time Notified____ 04:42:00 -_ Notified Whom DR LEIBRAND - K+ ____4.1__ -mmol/L tO2 ___17.4__ -Vol% Roverto test _Positive -
[2016-12-02] MEDS ORDERED: Alum-Mag Hydrox-Simeth 30 mL Suspension PO PRN (04:55)
[2016-12-02] MEDS ORDERED: Polyethylene Glycol (PEG) 17 Gm Powder PO PRN (04:55)
--- NOTE | 2016-12-02 05:25 | PCM.HPMED ---
Subjective Date of Service December 02, 2016 Primary Provider: Admitting Physician: Liliam Wong DO Primary Care Physician: Pablo Orellana MD Attending Physician: Liliam Wong DO Admit Status: From the Emergency Department Chief Complaint: CHF exacerbation History of Present Illness: Mrs. Morales is a 76-year-old female with past medical history of CHF, atrial fibrillation on anticoagulation, diabetes mellitus type II, COPD with history of heavy tobacco use who was discharged from the hospital yesterday 12/01/2016 afternoon after a 5 day hospital stay secondary to CHF exacerbation with accompanying chest pressure and dyspnea. Cardiology followed patient throughout this recent admission, cardiac catheterization 11/29/2016 showed "no significant angiographic coronary artery disease", echocardiogram showed a significant decline in her ejection fraction dropping to 30-35% with some wall motion abnormalities. At discharge cardiology recommended maximization of medical management for heart failure and atrial fibrillation - stopping warfarin and starting Elequis, amiodarone and metoprolol. Her home Lasix 40 mg by mouth twice a day was discontinued at discharge, as well as lisinopril. At time of discharge patient states she fell fine though after arriving home she began to once again developed chest pressure and shortness of breath. She states this feeling in her chest was not painful, stated feeling more as a pressure on her heart with a burning sensation. This was accompanied by diaphoresis and nausea with dry heaves and headache. The shortness of breath felt similar to prior events "could not catch my breath". During her hospital stay she was given IV fluids and encouraged to drink large amounts of fluids to help with her SHUBHAM, this was not accompanied with an increase in her urination. In the ED she was given 40 mg IV Lasix, started on BiPAP and DuoNeb with almost complete resolution of symptoms. She states she feels much better than she did on arrival to the ED. BUN and creatinine 36/1.3. Chest x-ray showed cardiomegaly, EKG showed atrial fibrillation with RVR at a rate of 113, Prolonged QT. A comprehensive review of systems was conducted with the patient and found to be negative except as above in the history of present illness. Allergies Coded Allergies: Penicillins (Verified Allergy, Severe, ANAPHYLAXIS, 09/16/12) azithromycin (Verified Allergy, Severe, ANAPHYLAXIS, 09/16/12) Macrolide Antibiotics (Verified Allergy, Unknown, 11/27/16) Uncoded Allergies: Honey Bee (Allergy, Mild, major swell up, 12/01/04) Home Medications Amiodarone (Amiodarone) 200 Mg Tablet 400 MG PO DIRECTED TAKE ONE TABLET TWICE DAILY FOR ONE DAY AND THEN, TAKE ONE TABLET DAILY UNTIL FOLLOWUP WITH CARDIOLOGY. Apixaban (Eliquis) 5 Mg Tablet 5 MG PO BID Ascorbate Calcium (Vitamin C) 500 Mg Tablet 500 MG PO DAILY Aspirin (Aspirin) 81 Mg Tablet 81 MG PO DAILY Atorvastatin (Lipitor) 40 Mg Tablet 40 MG PO DAILY Cholecalciferol (Vitamin D3) (Vitamin D3) 1,000 Unit Tab.chew 1,000 UNIT PO DAILY Citalopram (Citalopram) 20 Mg Tablet 20 MG PO DAILY Gabapentin (Gabapentin) 600 Mg Tablet 600 MG PO BID Metformin (Metformin) 500 Mg Tablet 500 MG PO DAILY Methadone (Methadone) 5 Mg Tablet 5 MG PO MORNING Methadone (Methadone) 10 Mg Tab 10 MG PO HS Metoprolol Succinate ER (Metoprolol Succinate ER) 25 Mg Tab.er.24h 25 MG PO Q12 Omeprazole (Omeprazole) 20 Mg Capsule.dr 20 MG PO BID Tiotropium [place] (Spiriva) 18 Mcg Cap.w.dev 18 MCG IH DAILY Vitamin E (Dl,Tocopheryl Acet) (Vitamin E) 1,000 Unit Capsule 1,000 UNIT PO DAILY PMH Atrial fibrillation (on Eliquis). Mho-wqnvvlo-ybwydufdh type 2 diabetes. COPD CHF Depression Asthma Previously reported chronic episodes of numbness and tingling in her fingertips of the hands and feet, which has been going on for years now. Chronic thoracic pain due to compression fracture in the past. Surgical History Splenectomy secondary to trauma Appendectomy Hysterectomy Tonsillectomy Family History Father with "heart disease" Social History Hx Alcohol Use: No Hx Substance Use: No Hx Tobacco Use: Yes Smoking Status: Former Smoker Living Arrangement: with Family Exam Vital Signs Vital Sign - Last Date Time Temp Pulse Resp B/P Pulse Ox O2 Delivery O2 Flow Rate FiO2 12/02/16 03:39 94 17 144/79 90 Nasal Cannula 2 12/02/16 02:53 50 12/02/16 02:08 36.7 Exam General: Sitting in hospital bed in no acute distress, well-developed, well- nourished, appropriately interactive HEENT: Normocephalic, atraumatic. External ears without defect. Pupils equal, round, and reactive to light and accommodation. Neck: Supple with full range of motion. No jugular venous distension. Cardiovascular: Irregularly irregular rhythm, regular rate no murmurs, rubs, or gallops appreciated Pulmonary: Expiratory wheezes, no crackles or rhonchi. Normal respiratory effort with no use of accessory muscles. GI: Bowel tones present. Soft, nontender, nondistended. Extremities: No edema noted, no cyanosis Skin: Normal temperature, turgor, and texture Lymph: no cervical or supraclavicular lymphadenopathy MSK: no erythema or edema of joints noted Neurological: Cranial nerves grossly intact. Psychiatric: Normal mood and affect. Alert and oriented to person, place, and time. Lab and Diagnostics Result Diagram: 12/02/16 01512/02/16 015 Additional Diagnostics: Arterial blood gas DateTimeAnalyzed 04:37:00 -_ pH ____7.373 - 7.350 7.450 pCO2 ___43.0__ -mmHg 35.0 45.0 pO2 ___72.3__ -mmHg 69.0 116 HCO3- ___25.0__ -mmol/L 22.0 26.0 ABE ___-0.3__ -mmol/L tHb ___13.1__ -g/dL O2Hb ___94.1__ -% COHb ____1.4__ -% 1.5 MetHb ____0.0__ -% sO2 ___95.4__ -% FIO2 ___40.0__ -% Assessment & Plan 76 female past medical history CHF, atrial fibrillation on warfarin, diabetes mellitus type II, COPD admitted for CHF exacerbation Acute CHF exacerbation.. Present on admission. Ongoing - Recent echo showed EF 3035% with some wall motion abnormality (previous records reviewed) - CXR reviewed, consistent with CHF exacerbation - required bipap in ED - Home dose Lasix 40 mg by mouth twice a day discontinued at discharge from hospital yesterday. - 40 mg IV Lasix given in ED with good effect - Consider cardiology consult for continued medication management optimization - Continue BiPAP when necessary - Continue to monitor Respiratory failure with hypoxia, acute -secondary to CHF exacerbation -treat as above -oxygen sat 88-92% Acute kidney injury. Present on admission. Ongoing - BUN/creatinine trending down at time of discharge yesterday - IV diuretics given - Continue to monitor - Avoid nephrotoxic medications Atrial fibrillation with RVR, acute, POA -given diltiazem IV prior to admission -continue metoprolol -possible contributing factor to CHF exacerbation Chest pain/pressure, present on admission. Ongoing - Catheterization 11/29/2016 showed "no significant angiographic coronary artery disease" - Initial troponin negative, repeat value pending - Telemetry - EKG showed A. fib with RVR, no ST segment abnormalities Atrial fibrillation chronic, present on admission. Ongoing - At discharge yesterday warfarin stopped - Continue Eliquis - Continue amiodarone - Continue metoprolol COPD, with underlying asthma. Present on admission. Stable - Continue home Ventolin and Spiriva when necessary Diabetes type II, [id number]. Present on admission. Ongoing - HgA1C 6 - Continue home metformin Chronic GERD, present on admission. Stable. - Continue home omeprazole. History of thoracic compression fracture on chronic pain meds. - Continue home methadone. Hypertension, present on admission. Stable. - Continue metoprolol Depression. Present on admission. Chronic. Ongoing - Continue home citalopram Peripheral neuropathy. Chronic. Present admission. Ongoing - Continue home gabapentin Hyperlipidemia. Present on admission. Ongoing - Continue home atorvastatin Patient Status: Patient was admitted under inpatient status with expected length of stay greater than two midnights due to severity of presenting symptoms , risk of adverse event, and complexity of treatment plan. Pain Evaluation: Adequate Pain Control VTE Prophylaxis: Other (eliquis) Resuscitation Status: CPR: Attempt Resuscitation Attending Statement The patient was seen and examined together with house staff on 12/02/2016 and I have added additional information to the note above. ISABELLA MILLARD DO December 02, 2016 05:25 Liliam Wong DO December 02, 2016 06:29
[2016-12-02] MEDS ORDERED: Albuterol 2.5 mg/3 mL Inhalation Solution NEB PRN (07:00)
[2016-12-02 07:15] LABS: BASOPHILS % (AUTO) 0.2 % (0-3); EOSINOPHILS % (AUTO) 0.1 % (0-5); MONOCYTES % (AUTO) 5.6 % (4-12); Mean Corpuscular Hemoglobin 32.9 pg (27.0-35.0); Mean Corpuscular Volume 96.2 fL (81-100); NEUTROPHILS % (AUTO) 79.6 % (40-74); Platelet Count 174 bil/L (150-400)
--- NOTE | 2016-12-02 07:34 | NUR ---
Admit Note Pt admitted with Acute CHF Exacerbation. Pt arrived via gurney from ED accompanied by ED RN. Pt transferred self with SBA to Hospital bed. No c/o chest pain, pressure or Palpitations, Tele Afib, HR 90s per Ceramic Tiler. No c/o SOB at rest, RA sats 93%. VS stable and afebrile. Pt oriented to room, bed, TV, Telephone and call light system. Urine sample sent to the lab. Care ongoing.
--- NOTE | 2016-12-02 07:49 | DRSVH ---
PROCEDURE: X-RAY CHEST ONE VIEW, PORTABLE ([id number]) INDICATIONS: CP TECHNIQUE: One view of the chest was acquired. COMPARISON: [facility], CR, XR CHEST 1VW (PORTABLE), 11/27/2016, 18:10. FINDINGS: Surgical changes and devices: None. Lungs and pleura: No pleural effusions or pneumothorax. Severe basilar predominant interstitial pulm onary opacity. Mediastinum: Mediastinal contours appear normal. Heart size is normal. Bones and chest wall: No suspicious bony lesions. Overlying soft tissues appear unremarkable. IMPRESSION: Interstitial pulmonary opacity, consistent with atypical pneumonia versus pulmonary edema . Dictated by: Nancy Latham M.D. on 12/02/2016 at 7:46 Approved by: Nancy Latham M.D. on 12/02/2016 at 7:48
[2016-12-02] MEDS: MeTOProlol XL 25 mg ER24 Tablet PO SCH ×2 (08:05→20:30)
[2016-12-02] MEDS: Tiotropium 18mcg/Cap 5 Capsule Inhaler Kit INHALATION SCH (08:08)
[2016-12-02 08:16] LABS: Magnesium 2.2 mg/dL (1.6-2.6); TROPONIN T < 0.010 ug/L (0.0-0.011)
[2016-12-02 09:49] LABS: APPEARANCE,URINE CLEAR (CLEAR,HAZY); COLOR,URINE STRAW (YELLOW); OCCULT BLOOD,URINE NEGATIVE (NEGATIVE); UROBILINOGEN,URINE NORMAL (NORMAL)
[2016-12-02] MEDS: HYDROcodone-APAP 5-325 mg Tablet PO PRN (12:35)
--- NOTE | 2016-12-02 14:22 | PCM.PNMED ---
Subjective Date of Service December 02, 2016 Subjective She is feeling better but is still somewhat short of breath while talking. No orthopnea. No pedal edema. No chest pain or palpitations. No nausea, or vomiting. No overnight events Exam Vital Signs Vital Sign - Last Date Time Temp Pulse Resp B/P Pulse Ox O2 Delivery O2 Flow Rate FiO2 12/02/16 13:33 88/58 12/02/16 08:45 92 12/02/16 08:01 18 92 Room Air 12/02/16 07:44 36.5 12/02/16 03:39 2 12/02/16 02:53 50 Exam Alert and oriented -3, no distress. Fluent speech Anicteric sclera. Lungs are clear with normal rate and effort Heart is regular without murmur gallop or rub Abdomen soft nontender, flat Extremities are free of edema. Skin is free of rash or lesions. Patient does exhibit some dyspnea with long sentences while talking. IVs and Medications Medications Reviewed: Medications were reviewed in detail Lab and Diagnostics Result Diagram: 12/02/16 0635 12/02/16 0635 Additional Diagnostics Arterial blood gas DateTimeAnalyzed 04:37:00 -_ pH ____7.373 - 7.350 7.450 pCO2 ___43.0__ -mmHg 35.0 45.0 pO2 ___72.3__ -mmHg 69.0 116 HCO3- ___25.0__ -mmol/L 22.0 26.0 ABE ___-0.3__ -mmol/L tHb ___13.1__ -g/dL O2Hb ___94.1__ -% COHb ____1.4__ -% 1.5 MetHb ____0.0__ -% sO2 ___95.4__ -% FIO2 ___40.0__ -% Assessment & Plan 76 female past medical history CHF, atrial fibrillation on warfarin, diabetes mellitus type II, COPD admitted for CHF exacerbation Acute on chronic systolic heart failure exacerbation.. Present on admission and improved. - Recent echo showed EF 3035% with some wall motion abnormality (previous records reviewed) - CXR reviewed, consistent with CHF exacerbation - required bipap in ED - Home dose Lasix 40 mg by mouth twice a day discontinued at discharge from hospital yesterday. - 40 mg IV Lasix given in ED with good effect - Consider cardiology consult for continued medication management optimization - Continue BiPAP when necessary - Continue to monitor She has done well overnight we will continue to try to slowly diuresis her and per cardiology recommendations at a low-dose of spironolactone and lisinopril. She is mildly hypotensive today so a mass wait another day for these additions. Acute Respiratory failure with hypoxia, POA improved. -secondary to CHF exacerbation -treat as above -oxygen sat 88-92% Acute kidney injury. Present on admission and improving.. - BUN/creatinine trending down at time of discharge yesterday - IV diuretics given - Continue to monitor - Avoid nephrotoxic medications Atrial fibrillation with RVR, acute, POA. This is improved with much better rate control. -given diltiazem IV prior to admission -continue metoprolol -possible contributing factor to CHF exacerbation Chest pain/pressure, present on admission. POA, and resolved at this time. - Catheterization 11/29/2016 showed "no significant angiographic coronary artery disease" - Initial troponin negative, repeat value pending - Telemetry - EKG showed A. fib with RVR, no ST segment abnormalities Atrial fibrillation chronic, present on admission. Ongoing - At discharge yesterday warfarin stopped - Continue Eliquis - Continue amiodarone - Continue metoprolol COPD, with underlying asthma. Present on admission. Stable - Continue home Ventolin and Spiriva when necessary Diabetes type II, [id number]. Present on admission and stable with good control.. Ongoing - HgA1C 6 - Continue home metformin Chronic GERD, present on admission. Stable. - Continue home omeprazole. History of thoracic compression fracture on chronic pain meds. - Continue home methadone. Hypertension, present on admission. Stable. - Continue metoprolol Depression. Present on admission. Chronic. Ongoing - Continue home citalopram Peripheral neuropathy. Chronic. Present admission. Ongoing - Continue home gabapentin Hyperlipidemia. Present on admission. Ongoing - Continue home atorvastatin Patient Status: Patient was admitted under inpatient status with expected length of stay greater than two midnights due to severity of presenting symptoms , risk of adverse event, and complexity of treatment plan. VTE Prophylaxis: Other (eliquis) Resuscitation Status: CPR: Attempt Resuscitation Roverto Warner MD December 02, 2016 14:22
--- NOTE | 2016-12-02 18:21 | NUR ---
Hypotension/ pain/ activity Patient received 25 mg of Metoprolol. BP evaluated at 1330 as 88/44, pt. asymptomatic denies dizziness or feeling faint. MD notified advised no changes at this time. Reassessed @ 1423 BP 96/52. Pt. reports pain unrelieved, MD notified, new order for 2 tabs [place]. Patient received 1 tab, reported good response (4/10). Pt. up in room with standby assist, steady gait. Indicates better pain relief when up ambulating.
[2016-12-03] VITALS (10 sets, daily range): BP systolic 102–125; BP diastolic 60–78; PULSE 73–117; RESP 16–20; O2SAT 94–97
[2016-12-03] MEDS: HYDROcodone-APAP 5-325 mg Tablet PO PRN ×2 (01:01→16:13)
--- NOTE | 2016-12-03 05:57 | NUR ---
Tele/BP Tele has been afib in 80's throughout the night. Held HS dose of metoprolol due to BP of 99/58. Given 1 [place] at 0100 for c/o back pain. Patient states this was effective and decreased her pain level to a "0". Sats have been in mid-90's on room air throughout the night.
[2016-12-03] MEDS: Pantoprazole 20 mg ER24 Tablet PO SCH ×2 (07:33→16:13)
[2016-12-03] MEDS: MeTOProlol XL 25 mg ER24 Tablet PO SCH ×2 (08:30→21:45)
[2016-12-03] MEDS: Tiotropium 18mcg/Cap 5 Capsule Inhaler Kit INHALATION SCH (10:07)
--- NOTE | 2016-12-03 10:48 | PCM.PNMED ---
Subjective Date of Service December 03, 2016 Subjective She is doing better today. Her blood pressure is a little better. He was quite low yesterday. She denies any shortness of breath except for one talking. She is moving around very little. No pedal edema. No chest pain or pressure now. She was taking Lasix 80 mg daily at home previously. No overnight events Exam Vital Signs Vital Sign - Last Date Time Temp Pulse Resp B/P Pulse Ox O2 Delivery O2 Flow Rate FiO2 12/03/16 09:29 90 12/03/16 08:14 36.6 16 109/73 96 Room Air 12/02/16 03:39 2 12/02/16 02:53 50 Intake and Output 12/02/16 12/02/16 12/03/16 Cumulative From/Thru 15:00 23:00 07:00 12/02/16 02:08 - 12/03/16 05:39 Intake Total 400 ml 540 ml 568 ml 1508 ml Output Total 600 ml 950 ml 1400 ml 2950 ml Balance -200 ml -410 ml -832 ml -1442 ml Intake Oral 400 ml 540 ml 568 ml 1508 ml Output Urine Total 600 ml 950 ml 1400 ml 2950 ml # Bowel Movements 0 0 Exam Alert and oriented -3, no distress. Fluent speech Anicteric sclera. Lungs are clear with normal rate and effort Heart is regular without murmur gallop or rub Abdomen soft nontender, flat Extremities are free of edema. Skin is free of rash or lesions. IVs and Medications Medications Reviewed: Medications were reviewed in detail Lab and Diagnostics Result Diagram: 12/02/1635 12/02/1635 Additional Diagnostics Arterial blood gas DateTimeAnalyzed 04:37:00 -_ pH ____7.373 - 7.350 7.450 pCO2 ___43.0__ -mmHg 35.0 45.0 pO2 ___72.3__ -mmHg 69.0 116 HCO3- ___25.0__ -mmol/L 22.0 26.0 ABE ___-0.3__ -mmol/L tHb ___13.1__ -g/dL O2Hb ___94.1__ -% COHb ____1.4__ -% 1.5 MetHb ____0.0__ -% sO2 ___95.4__ -% FIO2 ___40.0__ -% Assessment & Plan 76 female past medical history CHF, atrial fibrillation on warfarin, diabetes mellitus type II, COPD admitted for CHF exacerbation Acute on chronic systolic heart failure exacerbation.. Present on admission and further improved. - Recent echo showed EF 3035% with some wall motion abnormality (previous records reviewed) - CXR reviewed, consistent with CHF exacerbation - required bipap in ED -She has been doing well now for the last 24 hours. We will reintroduce Lasix orally at 20 today and start was interposed 2.5 daily. We will ambulate her and see her up. If she does well we may build a discharge her tomorrow. Acute Respiratory failure with hypoxia, POA and resolved. -secondary to CHF exacerbation -treat as above -oxygen sat 88-92% Acute kidney injury. Present on admission and improving.. - BUN/creatinine trending down at time of discharge yesterday - IV diuretics given - Continue to monitor - Avoid nephrotoxic medications Recheck BMP today. Atrial fibrillation with RVR, POA and resolved. This is improved with much better rate control. -given diltiazem IV prior to admission -continue metoprolol -possible contributing factor to CHF exacerbation Chest pain/pressure, present on admission. POA, and resolved at this time. - Catheterization 11/29/2016 showed "no significant angiographic coronary artery disease" - Initial troponin negative, repeat value pending - Telemetry - EKG showed A. fib with RVR, no ST segment abnormalities No further workup at this time. Atrial fibrillation chronic, present on admission. Ongoing - At discharge yesterday warfarin stopped - Continue Eliquis - Continue amiodarone - Continue metoprolol COPD, with underlying asthma. Present on admission. Stable - Continue home Ventolin and Spiriva when necessary Diabetes type II, [id number]-viwuxdqan. Present on admission and stable with good control.. Ongoing - HgA1C 6 - Continue home metformin Chronic GERD, present on admission. Stable. - Continue home omeprazole. History of thoracic compression fracture on chronic pain meds. - Continue home methadone. Hypertension, present on admission. Stable. - Continue metoprolol Depression. Present on admission. Chronic. Ongoing - Continue home citalopram Peripheral neuropathy. Chronic. Present admission. Ongoing - Continue home gabapentin Hyperlipidemia. Present on admission. Ongoing - Continue home atorvastatin Patient Status: Patient was admitted under inpatient status with expected length of stay greater than two midnights due to severity of presenting symptoms , risk of adverse event, and complexity of treatment plan. Possible discharge tomorrow, December 04 she continues to improve clinically VTE Prophylaxis: Other (eliquis) Resuscitation Status: CPR: Attempt Resuscitation Roverto Warner MD December 03, 2016 10:48
--- NOTE | 2016-12-03 11:59 | NUR ---
Chest discomfort / BP / activity Pt c/o lower substernal chest "fullness" this a.m. Denied any new breathing problems. Stated this chest sensation was the same thing she felt during her recent prior hospitalization. Pt remains on RA with oxygen saturation in the mid 90s. Pt reported later that this chest discomfort was now gone. Held pt's a.m. dose of Metoprolol due to low systolic BP: 109/73 at 0815 hrs. Encouraged pt to ambulate; she walked in the hallway one time this a.m. so far. Pt reported she felt tired and SOB after walking. Pt declined supplemental oxygen, stating she didn't feel she needed it. Addendum: 12/03/16 at 1235 by YADY CLEMENTS RN At 1230 hrs pt reported increased chest discomfort, fullness. This was the same sensation she had during her prior hospitalization. Administered 1 lpm oxygen via NC. Put head of bed up to 50 degrees and propped pillows behind pt's back. Oxygen saturation was 94% Pt reported the supplemental oxygen helped and she could feel her breathing was becoming easier. Addendum: 12/03/16 at 1314 by YADY CLEMENTS RN At 1300 hrs pt reported she was feeling better and did not feel she needed the supplemental oxygen. NC removed.
--- NOTE | 2016-12-03 14:41 | NUR ---
Social Work-initial assessment: Data:see initial assessment. Pt is a 76 y/o female who was admitted on 12/02/16 for acute CHF per H&P. Pt's insurance is [employer] and PCP is Paresh Orellana MD. EMR reviewed. SW met with pt to discuss discharge planning, SW role explained. Pt is alert and oriented x3. pt resides in an RV with her where she remains independent with ADLS. Pt does not use any DME and drives. Pt has no HH Or SNF history. 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 SW discussed DPOA/advanced directive this has not been completed, SW provided pt with a copy. Per RN notes, pt has been up independent in her room. Pt's to provide transport home at discharge. SW provided phone number and plan on white board in room. No anticipated discharge needs. SW will continue to follow if needs arise. Assessment:Pt who is independent at baseline. Plan:Pt to discharge home back to her RV when medically stable. No anticipated discharge needs. SW will continue to follow if needs arise. PAULIE Vinson Addendum: 12/03/16 at 1502 by LADARIUS CERRATO SS Amended: Links added.
[2016-12-04 00:11] VITALS: BP 129/85; PULSE 94; RESP 20; O2SAT 97
[2016-12-04] MEDS: HYDROcodone-APAP 5-325 mg Tablet PO PRN (01:26)
[2016-12-04] MEDS ORDERED: LORazepam 0.5 mg Tablet PO ONE (01:30)
[2016-12-04 04:00] VITALS: BP 121/75; PULSE 95; RESP 20; O2SAT 96
--- NOTE | 2016-12-04 05:49 | NUR ---
Anxiety Pt reported anxiety at HS manifesting with symptoms of feelings of indigestion, chest discomfort, and burning to sternal area. Pt reports only being able to take small bites in order to be able to swallow at all. States "I think it's just anxiety that's doing this though; I've got a lot of stressful things going on at home right now, and my doesn't handle all of this very well." EKG obtained, paged. Pt denied interventions at the time. After several hours, pt agreeable to anxiolytic - 0.5mg PO ativan ordered and administered with pt reporting complete relief upon reassessment. Pt stated "I'm really glad that he ordered that for me because now I know what the problem is and I can follow up with Dr. Orellana about it at my appointment this week." Able to rest. Pt up and ambulating in hallway x1 this shift, tolerating well after arriving back in room with SpO2 95% and pt reporting dyspnea only after prolonged exertion. VSS, tele afib 70s-90s.
[2016-12-04 07:58] VITALS: BP 117/84; PULSE 86; RESP 20; O2SAT 96
[2016-12-04] MEDS: Tiotropium 18mcg/Cap 5 Capsule Inhaler Kit INHALATION SCH (08:18)
[2016-12-04] MEDS: Pantoprazole 20 mg ER24 Tablet PO SCH (08:26)
[2016-12-04 08:56] VITALS: PULSE 109; RESP 20; O2SAT 98
[2016-12-04 10:22] VITALS: PULSE 88
--- NOTE | 2016-12-04 11:16 | PCM.DIMED ---
Discharge Instructions Date of Service December 04, 2016 Dates of Hospitalization December 02, 2016 at 04:53 Discharge Diagnosis Discharge Diagnosis Acute on chronic systolic heart failure , improved. Acute Respiratory failure with hypoxia, improved. Acute kidney injury. resolved. Atrial fibrillation with RVR, improved. Chest pain/pressure, present on admission. resolved. Normal angiogram. Anxiety, active. Atrial fibrillation chronic COPD, stable Diabetes type II, Chronic GERD, stable History of thoracic compression fracture on chronic pain meds. Continuous opiate dependence. Stable. Hypertension, stable. Depression. Stable. Peripheral neuropathy. Stable. Hyperlipidemia. Stable. Patient Instructions Patient Instructions Dr Orellana as scheduled this Friday (December 06) Follow-up Provider: Pablo Orellana MD Follow-up with PCP in: 1 week Roverto Warner MD December 04, 2016 11:16
[2016-12-04] MEDS ORDERED: FURO-129 PO (11:18)
[2016-12-04] MEDS ORDERED: LISI2.5T PO (11:18)
[2016-12-04] MEDS ORDERED: LORA-302 PO (11:19)
--- NOTE | 2016-12-04 11:26 | PCM.DC.MED ---
Discharge Summary Date of Service December 04, 2016 Dates of Hospitalization Date of Hospital Admission December 02, 2016 at 04:53 Date of Discharge: December 04, 2016 Providers: Admitting Physician: Liliam Wong DO Primary Care Physician: Pablo Orellana MD Attending Physician: Liliam Wong DO Diagnosis at Time of Discharge Diagnosis at Time of Discharge Acute on chronic systolic heart failure , improved. Dilated cardiomyopathy, nonischemic, POA. Acute Respiratory failure with hypoxia, improved. Acute kidney injury. resolved. Atrial fibrillation with RVR, improved. Chest pain/pressure, present on admission. resolved. Normal angiogram. Anxiety, active. Atrial fibrillation chronic COPD, stable Diabetes type II, Chronic GERD, stable History of thoracic compression fracture on chronic pain meds. Continuous opiate dependence. Stable. Hypertension, stable. Depression. Stable. Peripheral neuropathy. Stable. Hyperlipidemia. Stable. Consultations None Procedures Cardiac Echo Impression None Other Diagnostics Arterial blood gas DateTimeAnalyzed 04:37:00 -_ pH ____7.373 - 7.350 7.450 pCO2 ___43.0__ -mmHg 35.0 45.0 pO2 ___72.3__ -mmHg 69.0 116 HCO3- ___25.0__ -mmol/L 22.0 26.0 ABE ___-0.3__ -mmol/L tHb ___13.1__ -g/dL O2Hb ___94.1__ -% COHb ____1.4__ -% 1.5 MetHb ____0.0__ -% sO2 ___95.4__ -% FIO2 ___40.0__ -% Brief History Mrs. Morales is a 76-year-old female with past medical history of CHF, atrial fibrillation on anticoagulation, diabetes mellitus type II, COPD with history of heavy tobacco use who was discharged from the hospital yesterday 12/01/2016 afternoon after a 5 day hospital stay secondary to CHF exacerbation with accompanying chest pressure and dyspnea. Cardiology followed patient throughout this recent admission, cardiac catheterization 11/29/2016 showed "no significant angiographic coronary artery disease", echocardiogram showed a significant decline in her ejection fraction dropping to 30-35% with some wall motion abnormalities. At discharge cardiology recommended maximization of medical management for heart failure and atrial fibrillation - stopping warfarin and starting Elequis, amiodarone and metoprolol. Her home Lasix 40 mg by mouth twice a day was discontinued at discharge, as well as lisinopril. At time of discharge patient states she fell fine though after arriving home she began to once again developed chest pressure and shortness of breath. She states this feeling in her chest was not painful, stated feeling more as a pressure on her heart with a burning sensation. This was accompanied by diaphoresis and nausea with dry heaves and headache. The shortness of breath felt similar to prior events "could not catch my breath". During her hospital stay she was given IV fluids and encouraged to drink large amounts of fluids to help with her SH[place], this was not accompanied with an increase in her urination. In the ED she was given 40 mg IV Lasix, started on BiPAP and DuoNeb with almost complete resolution of symptoms. She states she feels much better than she did on arrival to the ED. BUN and creatinine 36/1.3. Chest x-ray showed cardiomegaly, EKG showed atrial fibrillation with RVR at a rate of 113, Prolonged QT. A comprehensive review of systems was conducted with the patient and found to be negative except as above in the history of present illness. Hospital Course 76 female past medical history CHF, atrial fibrillation on warfarin, diabetes mellitus type II, COPD admitted for CHF exacerbation Acute on chronic systolic heart failure exacerbation.. Present on admission and further improved. - Recent echo showed EF 3035% with some wall motion abnormality (previous records reviewed) - CXR reviewed, consistent with CHF exacerbation - required bipap in ED -She has been doing well now for the last 24 hours. We will reintroduce Lasix orally at 20 today and start was interposed 2.5 daily. We will ambulate her and see her up. If she does well we may build a discharge her tomorrow. She improved with diuresis 1 day. She then became somewhat volume depleted and we held and diuresis his second day. Then we started Lasix at 20 mg by mouth daily on the third and she did well. Acute Respiratory failure with hypoxia, POA and resolved. -secondary to CHF exacerbation -treat as above -oxygen sat 88-92% This resolved with diuresis Acute kidney injury. Present on admission and improving.. - BUN/creatinine trending down at time of discharge yesterday - IV diuretics given - Continue to monitor - Avoid nephrotoxic medications Recheck BMP today. This improved with moderate diuresis. Atrial fibrillation with RVR, POA and resolved. This is improved with much better rate control. -given diltiazem IV prior to admission -continue metoprolol -possible contributing factor to CHF exacerbation Her rate was well controlled with metoprolol 25 twice a day. Chest pain/pressure consistent with anxiety, present on admission. POA, and resolved at this time. - Catheterization 11/29/2016 showed "no significant angiographic coronary artery disease" - Initial troponin negative, repeat value pending - Telemetry - EKG showed A. fib with RVR, no ST segment abnormalities No further workup at this time. She did improve with Ativan and did feel this related more to anxiety. Her angiogram revealed normal coronary arteries. Atrial fibrillation chronic, present on admission. Ongoing - At discharge yesterday warfarin stopped - Continue Eliquis - Continue amiodarone - Continue metoprolol COPD, with underlying asthma. Present on admission. Stable - Continue home Ventolin and Spiriva when necessary Diabetes type II, [id number]. Present on admission and stable with good control.. Ongoing - HgA1C 6 - Continue home metformin Chronic GERD, present on admission. Stable. - Continue home omeprazole. History of thoracic compression fracture on chronic pain meds. - Continue home methadone. Hypertension, present on admission. Stable. - Continue metoprolol Depression. Present on admission. Chronic. Ongoing - Continue home citalopram Peripheral neuropathy. Chronic. Present admission. Ongoing - Continue home gabapentin Hyperlipidemia. Present on admission. Ongoing - Continue home atorvastatin Exam Vital Signs (Last) Date Time Temp Pulse Resp B/P Pulse Ox O2 Delivery O2 Flow Rate FiO2 12/04/16 10:22 88 12/04/16 08:56 20 98 Room Air 12/04/16 07:58 36.7 117/84 12/02/16 03:39 2 12/02/16 02:53 50 Exam Patient was seen and examined on the day of discharge Test 12/02/16 01:33 12/02/16 01:51 12/02/16 05:45 12/02/16 06:35 Hold Richardson Top Tube Received (Received) Pro-B-Type Natriuretic Peptide 2579pg/mL (0-738) Urine Color Straw (YELLOW) Urine Appearance Clear (CLEAR,HAZY) Urine pH 5.0 (5.0-8.0) Urine Specific [place] 1.005 (1.003-1.035) Urine Protein Negativemg/dL (NEG,TRACE) Urine Glucose (UA) Negativemg/dL (NEGATIVE) Urine Ketones Negativemg/dL (NEGATIVE) Urine Occult Blood Negative (NEGATIVE) Urine Nitrite Negative (NEGATIVE) Urine Bilirubin Negative (NEGATIVE) Urine Urobilinogen Normalmg/dL (NORMAL) Urine Leukocyte Esterase Negative (NEGATIVE) Urine RBC 0-2/hpf (0-2) Urine WBC 0-5/hpf (0-5) Urine Epithelial Cells Few/hpf (NONE-MOD) Urine Crystals None seen (NONE SEEN) Urine Bacteria None/hpf (NONE-FEW) Urine Hyaline Casts None/lpf (NONE) Urine Granular Casts None seen (NONE SEEN) Urine Waxy Casts None seen (NONE SEEN) Urine Red Blood Cell Casts None seen (NONE SEEN) Urine White Blood Cell Casts None seen (NONE SEEN) Urine Mucus None seen (None Seen) Urine Trichomonas None seen (NONE SEEN) Urine Yeast None (NONE SEEN) Urinalysis Comment None Urine Culture Reflexed Not indicated Hold Urine Received (Received) White Blood Count 9.8th/mm3 (3.8-10.1) Red Blood Count 3.92mil/mm3 (3.90-5.20) Hemoglobin 12.9g/dL (12.0-15.6) Hematocrit 37.7% (35.0-46.0) Mean Corpuscular Volume 96.2fL (81-100) Mean Corpuscular Hemoglobin 32.9pg (27.0-35.0) Mean Corpuscular Hemoglobin Concent 34.2% (32.0-37.0) Red Cell Distribution Width 14.1% (12.3-15.4) Platelet Count 174bil/L (150-400) Neutrophils (%) (Auto) 79.6% (40-74) Lymphocytes (%) (Auto) 14.3% (14-46) Monocytes (%) (Auto) 5.6% (4-12) Eosinophils (%) (Auto) 0.1% (0-5) Basophils (%) (Auto) 0.2% (0-3) Magnesium Level 2.2mg/dL (1.6-2.6) Total Bilirubin 0.3mg/dL (0.0-1.2) Aspartate Amino Transf (AST/SGOT) 69U/L (0-50) Alanine Aminotransferase (ALT/SGPT) 61U/L (0-32) Alkaline Phosphatase 97U/L (25-165) Troponin T < 0.010ug/L (0.0-0.011) Total Protein 6.8g/dL (6.4-8.4) Albumin 3.9g/dL (3.4-5.0) Test 12/03/16 10:40 Sodium Level 138mEq/L (134-144) Potassium Level 3.9mEq/L (3.5-5.2) Chloride Level 102mEq/L (97-108) Carbon Dioxide Level 24mmol/L (18-29) Blood Urea Nitrogen 27mg/dL (8-27) Creatinine 1.13mg/dL (0.57-1.00) Estimat Glomerular Filtration Rate 67mL/min (>59) Glucose Level 136mg/dL (60-99) Calcium Level 8.8mg/dL (8.5-10.1) Discharge Medications Discharge Medications Amiodarone (Amiodarone) 200 Mg Tablet 400 MG PO DIRECTED TAKE ONE TABLET TWICE DAILY FOR ONE DAY AND THEN, TAKE ONE TABLET DAILY UNTIL FOLLOWUP WITH CARDIOLOGY. Prescribed by: FRANCISCA MUÑIZ MD Apixaban (Eliquis) 5 Mg Tablet 5 MG PO BID Prescribed by: FRANCISCA MUÑIZ MD Ascorbate Calcium (Vitamin C) 500 Mg Tablet 500 MG PO DAILY (Reported) Aspirin (Aspirin) 81 Mg Tablet 81 MG PO QAM (Reported) Atorvastatin (Lipitor) 40 Mg Tablet 40 MG PO HS (Reported) Cholecalciferol (Vitamin D3) (Vitamin D3) 1,000 Unit Tab.chew 1,000 UNIT PO DAILY (Reported) Citalopram (Citalopram) 20 Mg Tablet 20 MG PO DAILY (Reported) Furosemide (Lasix) 20 Mg Tablet 20 MG PO DAILY Prescribed by: ROVERTO IGNACIO MD Gabapentin (Gabapentin) 600 Mg Tablet 600 MG PO BID (Reported) Lisinopril (Lisinopril) 2.5 Mg Tablet 2.5 MG PO DAILY Prescribed by: ROVERTO IGNACIO MD Metformin (Metformin) 500 Mg Tablet 500 MG PO HS (Reported) Methadone (Methadone) 5 Mg Tablet 5 MG PO MORNING (Reported) Methadone (Methadone) 10 Mg Tab 10 MG PO HS (Reported) Metoprolol Succinate ER (Metoprolol Succinate ER) 25 Mg Tab.er.24h 25 MG PO Q12 Prescribed by: FRANCISCA MUÑIZ MD Omeprazole (Omeprazole) 20 Mg Capsule.dr 20 MG PO BID (Reported) Pyridoxine (Vitamin B-6) 50 Mg Tablet 200 MG PO QAM (Reported) Tiotropium [place] (Spiriva) 18 Mcg Cap.w.dev 18 MCG IH DAILY Prescribed by: FRANCISCA MUÑIZ MD Vitamin E (Dl,Tocopheryl Acet) (Vitamin E) 1,000 Unit Capsule 1,000 UNIT PO DAILY (Reported) As needed Albuterol Sulfate (Ventolin HFA Inhaler) 200 Puff/18 Gm Inhaler 2 PUFF INH Q4 PRN PRN For Wheezing (Reported) Lorazepam (Ativan) 0.5 Mg Tablet 0.5 MG PO TID PRN PRN For Anxiety Prescribed by: ROVERTO IGNACIO MD Followup Plan Disposition: Home Patient Instructions Dr Orellana as scheduled this Friday (December 06) Follow-up Provider: Pablo Orellana MD Follow-up with PCP in: 1 week Time spent 45 minutes Roverto Ignacio MD December 04, 2016 11:26
--- NOTE | 2016-12-04 11:56 | NUR ---
Social Work: Discharge Data: Pt is on day 2 of hospitalization. EMR reviewed, pt discussed in rounds. BELT TURNER met with pt at bedside, pt states no d/c planning concerns and that her will drive her home today via POV. No d/c planning needs at this time. BELT TURNER will continue to follow if needs arise. Assessment: Pt who is independent at baseline. Plan: Pt will d/c home today via POV with spouse. No d/c planning needs at this time. BELT TURNER will continue to follow if needs arise. PAULIE Carter
[2016-12-04] MEDS: MeTOProlol XL 25 mg ER24 Tablet PO SCH (13:02)
--- NOTE | 2016-12-04 13:49 | NUR ---
spiritual care; pt request brief visit at discharge. no spiritual care needs identified as pt is eager to continue recovery at home.
--- NOTE | 2016-12-04 14:06 | NUR ---
Discharge note- Denies complaints other than feeling "anxious" at times. Up ad patt in room and tolerating activity well. VSS. Discharged to home with and personal belongings.
== END 2016-12-04 13:30 | disposition home or self-care (01) | DRG 291 ==
LOC: SED 01:30 → PCC 04:53
PROVIDERS: ADMIT Internal Medicine; ATTEND Internal Medicine
PROC: 4A033B1 Measurement of Arterial Pressure, Peripheral, Percutaneous Approach (ICD-10-PCS; principal; 2016-12-02)
DX: I50.23 Acute on chronic systolic (congestive) heart failure (principal); J96.01 Acute respiratory failure with hypoxia; N17.9 Acute kidney failure, unspecified; I42.9 Cardiomyopathy, unspecified; E11.9 Type 2 diabetes mellitus without complications; J45.909 Unspecified asthma, uncomplicated; J44.9 Chronic obstructive pulmonary disease, unspecified; I48.2 Chronic atrial fibrillation; K21.9 Gastro-esophageal reflux disease without esophagitis; F32.9 Major depressive disorder, single episode, unspecified; E78.5 Hyperlipidemia, unspecified; G62.9 Polyneuropathy, unspecified; Z88.0 Allergy status to penicillin; Z79.51 Long term (current) use of inhaled steroids; Z87.891 Personal history of nicotine dependence; Z79.82 Long term (current) use of aspirin; Z79.01 Long term (current) use of anticoagulants; F41.9 Anxiety disorder, unspecified